=== PATIENT | female | born 1950 | race Caucasian/White ===

== ENCOUNTER → 2017-04-03 | Outpatient (CLI) | payer OTHER ==
[~2017-04-03] MED LIST: BIOTPOW17 PO; DOCU100C PO; INSPMPNVLG; LOSA50TA6 PO; MELA1TAB3 PO; ONDA8TAB6 PO; ROPI0.25 PO; ROPI0.5T15 PO; TRAM-10 PO; VENL150C56 PO
--- NOTE | 2017-04-03 09:38 | DIAGNOSTIC IMAGING REPORT ---
MRI OF THE LUMBAR SPINE WITHOUT CONTRAST CLINICAL HISTORY: Spondylosis. Low back pain radiating into right lower extremity. COMPARISON STUDY: No previous studies for comparison. TECHNIQUE: Utilizing a 1.5 Pat magnet and dedicated coil, multiplanar, multiecho imaging of the lumbar spine was performed without IV contrast. FINDINGS: For purposes of numbering on this exam, the L5-S1 disc space is assigned to axial image 27 of 30. Alignment of the lumbar spine is anatomic. There is a Schmorl's node along the superior endplate of T12. Slight loss of height of the superior endplate of T11 with Schmorl's node is chronic. There is no intracanalicular mass or fluid collection. Conus terminates at the mid L1 level. Paravertebral soft tissues are unremarkable. This study is mildly compromised by motion artifact. L1-2: The central canal and neural foramen are patent. L2-3: The central canal and neural foramen are patent. There is mild disc bulge with facet arthrosis. L3-4: There is mild disc bulge with ligamentous hypertrophy and facet arthrosis. The central canal and neural foramen are patent. L4-5: There is disc bulge with a small superimposed left foraminal disc protrusion. There is facet arthrosis. Central canal is patent. There is mild narrowing of the left neural foramen and left lateral recess. L5-S1: There is a small central disc protrusion with annular tear. There is minimal narrowing of the central canal. The neural foramen are patent. IMPRESSION: 1. Mild multilevel degenerative disc disease and facet arthrosis. Minimal narrowing of the central canal at L5-S1. 2. Mild multilevel neural foraminal narrowing. Electronically signed by: Cristopher Quiñonez M.D. 04/03/2017 9:37 AM Dictated Date/Time: 04/03/2017 9:29 AM
== END | disposition home or self-care (01) ==
LOC: C.MRI 07:39
PROVIDERS: ATTEND Orthopaedic Surgery Orthopaedic Surgery of the Spine
DX: M47.26 Other spondylosis with radiculopathy, lumbar region (principal)

== ENCOUNTER → 2017-05-20 | Outpatient (CLI) | payer OTHER ==
--- NOTE | 2017-05-20 13:15 | DIAGNOSTIC IMAGING REPORT ---
PELVIS AND RIGHT HIP MRI HISTORY: Right hip pain. TECHNIQUE: Multiplanar multisequence MRI of the pelvis and right hip were performed without the use of contrast. COMPARISON STUDY: Lumbar spine MRI 04/03/2017. FINDINGS: Normal marrow signal intensity seen throughout the visualized osseous structures of the pelvis and hips. No fracture or dislocation. No significant hip effusion. Small linear cystic focus adjacent to the superior aspect of the right hip. This favors a small paralabral cyst in the setting of a labral tear. This measures approximately 2.2 x 0.4 cm. IMPRESSION: 1. No fracture or dislocation within the pelvis or hips. 2. Small linear cystic focus adjacent to the superior aspect of the right hip. This favors a small paralabral cyst in the setting of a labral tear. This measures approximately 2.2 x 0.4 cm. Electronically signed by: Jayme Owens M.D. 05/20/2017 1:13 PM Dictated Date/Time: 05/20/2017 1:08 PM
== END | disposition home or self-care (01) ==
LOC: C.MRI 11:38
PROVIDERS: ATTEND Orthopaedic Surgery Orthopaedic Surgery of the Spine
DX: M25.551 Pain in right hip (principal)

== ENCOUNTER 2022-08-03 06:08 | Inpatient (IN) ==
--- NOTE | 2022-07-16 11:25 | PAT Medication Instructions ---
Medication Instructions Date of Service July 16, 2022 Home Medications Medication Instructions Recorded insulin syr/ndl U100 half bette 0.3 #100 ea 03/21/21 mL 31 gauge x 5/16" (BD Insulin Syringe Ultra-Fine (half unit)) Tresiba FlexTouch U-100 100 20 unit (0.2 mL) subcut DAILY #15 03/23/21 unit/mL (3 mL) subcutaneous pen mL (insulin degludec) ipratropium bromide 21 mcg (0.03 2 spray intranasal BID #30 mL 09/22/21 %) nasal spray tamsulosin 0.4 mg capsule 0.4 mg PO DAILY #30 caps 03/21/22 pregabalin 75 mg capsule (Lyrica) 75 mg PO HS omeprazole 20 mg capsule,delayed release 20 mg PO BID ondansetron HCl 8 mg tablet (Zofran) 8 mg PO Q8H PRN tramadol 50 mg tablet (Ultram) 50 mg PO Q6H PRN venlafaxine 150 mg capsule,extended release 24 hr (Effexor XR) 150 mg PO QAM blood-glucose sensor (Dexcom G6 Sensor device) blood-glucose transmitter (Dexcom G6 Transmitter device) insulin aspart U-100 100 unit/mL subcutaneous solution (Novolog U-100 Insulin aspart) 50 unit subcut DAILY metoprolol succinate 25 mg tablet,extended release 24 hr 25 mg PO QPM insulin syr/ndl U100 half bette 0.3 mL 31 gauge x 5/16" (BD Insulin Syringe Ultra-Fine (half unit)) Tresiba FlexTouch U-100 100 unit/mL (3 mL) subcutaneous pen (insulin degludec) 20 unit (0.2 mL) subcut DAILY ipratropium bromide 21 mcg (0.03 %) nasal spray 2 spray intranasal BID tamsulosin 0.4 mg capsule 0.4 mg PO DAILY oxycodone 5 mg tablet 5 mg PO Q6H PRN Continue as directed ondansetron HCl 8 mg tablet (Zofran) 8 mg PO Q8H PRN(if needed) tamsulosin 0.4 mg capsule 0.4 mg PO DAILY DO NOT take the morning of surgery insulin aspart U-100 100 unit/mL subcutaneous solution (Novolog U-100 Insulin aspart) 50 unit subcut DAILY Take morning of surgery With a small sip of water, OTHERWISE NOTHING TO EAT OR DRINK AFTER MIDNIGHT: omeprazole 20 mg capsule,delayed release 20 mg PO BID tramadol 50 mg tablet (Ultram) 50 mg PO Q6H PRN(if needed) venlafaxine 150 mg capsule,extended release 24 hr (Effexor XR) 150 mg PO QAM ipratropium bromide 21 mcg (0.03 %) nasal spray 2 spray intranasal BID oxycodone 5 mg tablet 5 mg PO Q6H PRN(if needed) Take evening before surgery pregabalin 75 mg capsule (Lyrica) 75 mg PO HS omeprazole 20 mg capsule,delayed release 20 mg PO BID tramadol 50 mg tablet (Ultram) 50 mg PO Q6H PRN(if needed) metoprolol succinate 25 mg tablet,extended release 24 hr 25 mg PO QPM ipratropium bromide 21 mcg (0.03 %) nasal spray 2 spray intranasal BID oxycodone 5 mg tablet 5 mg PO Q6H PRN(if needed) Insulin Dependent Diabetic Patients * Test your blood sugar the morning of surgery * If Blood Sugar is GREATER THAN 150, take HALF of your regular dose of: Tresiba FlexTouch U-100 100 unit/mL (3 mL) subcutaneous pen (insulin degludec)-10 unit (0.2 mL) subcut DAILY * If Blood Sugar is LESS THAN 150, DO NOT TAKE ANY: Tresiba FlexTouch U-100 100 unit/mL (3 mL) subcutaneous pen (insulin degludec). Other Notes If you have any questions please call us at [phone] or [phone] or [phone] or [phone]
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
[~2022-08-03 06:08] MED LIST changes: +ACETAMINOPHEN 500 MG TAB PO SCH; -BIOTPOW17 PO; +CeleBREX 200 MG CAP PO SCH; -DOCU100C PO; +GABAPENTIN 300 MG CAP PO SCH; -INSPMPNVLG; +LACTATED RINGER'S 1,000 ML IV SCH; -LOSA50TA6 PO; -MELA1TAB3 PO; -ONDA8TAB6 PO; -ROPI0.25 PO; -ROPI0.5T15 PO; -TRAM-10 PO; -VENL150C56 PO; +ceFAZolin 1000MG 1,000 MG/7.5 ML SYR IV SCH
[2022-08-03] MEDS ORDERED: ceFAZolin 330 MG/ML 1 GM VIAL ONE (07:20)
[2022-08-03] MEDS ORDERED: BUPIVACAINE/EPINEPHRINE 0.25% 1:200,000 30 ML VIAL ONE (07:20)
--- NOTE | 2022-08-03 07:34 | History & Physical Bridge Note ---
Date of Service August 03, 2022 History & Physical Bridge Note I have examined the patient, reviewed the History & Physical and in the interval since the performance of the History & Physical I have noted the following changes of clinical significance: no changes noted
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
[2022-08-03] MEDS ORDERED: ROCURONIUM BROMIDE 10 MG/ML 5 ML VIAL IV ONE (07:36)
[2022-08-03] MEDS ORDERED: LIDOCAINE 2% MPF LOCAL 5 ML VIAL INFIL ONE (07:36)
[2022-08-03] MEDS ORDERED: ONDANSETRON INJ 2 MG/ML 2 ML VIAL ONE (07:36)
[2022-08-03] MEDS ORDERED: PROPOFOL IV EMULSION 10 MG/ML 20 ML VIAL IV ONE (07:36)
[2022-08-03] MEDS ORDERED: METOCLOPRAMIDE HCL INJ 5 MG/ML 2 ML VIAL ONE (07:36)
[2022-08-03] MEDS ORDERED: fentaNYL citrate 100 MCG/2 ML VIAL ONE ×2 (07:37→09:23)
[2022-08-03] MEDS ORDERED: PHENYLEPHRINE 100MCG/ML 5ML SYR IV PRN (07:38)
[2022-08-03] MEDS ORDERED: ONDANSETRON INJ 2 MG/ML 2 ML VIAL IV PRN ×2 (07:38→12:30)
[2022-08-03] MEDS ORDERED: ePHEDrine sulfate 50 MG/ML AMP IV PRN (07:38)
[2022-08-03] MEDS ORDERED: LABETALOL HCL IV 5 MG/ML 20ML IV PRN (07:38)
[2022-08-03] MEDS ORDERED: ATROPINE SULFATE 0.1 MG/ML 10ML SYR IV PRN (07:38)
[2022-08-03] MEDS ORDERED: ALBUMIN HUMAN 5% 12.5 GM/250 ML VIAL IV ONE (07:39)
[2022-08-03] MEDS ORDERED: KETAMINE 50 MG/5 ML SYRINGE ONE (08:16)
[2022-08-03] MEDS ORDERED: ePHEDrine sulfate 50 MG/ML AMP ONE (08:36)
[2022-08-03] MEDS ORDERED: NEOSTIGMINE METHYLSULFATE 1 MG/ML 10ML VIAL ONE (08:36)
[2022-08-03] MEDS ORDERED: GLYCOPYRROLATE 0.2 MG/ML VIAL ONE (08:36)
[2022-08-03] MEDS ORDERED: FLOSEAL HEMOSTATIC MATRIX 10ML TOP ONE (09:14)
[2022-08-03] MEDS ORDERED: SUGAMMADEX SODIUM 200 MG/2 ML VIAL IV ONE (09:21)
--- NOTE | 2022-08-03 09:26 | Operative Report ---
Post Operative Report Pre & Post Diagnosis Operation Date: 08/03/22 07:45 Pre-Op Diagnosis: Neurogenic Claudication due to Lumbar Spinal Stenosis Post-Op Diagnosis: Neurogenic Claudication due to Lumbar Spinal Stenosis I identified the patient and participated in the time-out.: Yes Procedure Operation Date: 08/03/22 07:45 Actual Procedures #1 lumbar decompression bilateral medial facetectomies and foraminotomies L3-L4 L4-5. #2 posterior spinal fusion L4-5. #3 placement posterior instrumentation L4-5. #4 interbody fusion L4-5. #5 placement of Spira 13 x 26 mm cage at L4-5. #6 placement locally harvested morselized autograft and posterior gutters. #7 placement I factor model V toss interbody space and posterior gutters. Surgeon Rip Pena, Drug Counselor Diego Cisneros Estimated Blood Loss 100 Findings Consistent with Post-Op Diagnosis Specimens None Indications This is a 72-year-old female who presents above-mentioned diagnosis after failing course of nonoperative care she is here for surgical invention. Description of Procedure Patient was met with identified informed consent obtained. Patient was then taken to the operative suite underwent a patient placed in prone position the [place] table top Jan frame. All bony prominences well-padded eyes inspected to ensure no external pressure placed upon the. This point lumbar spine was prepped and draped in a sterile fashion. Sharp dissection with the assistance of Bovie cartilage from down to and exposing the lamina transverse processes of L4-L5. From caudal to cephalad fashion complete laminectomy of L4 partial laminectomy of L3 was performed including bilateral medial facetectomies and fo raminotomies addressing severe spinal stenosis. Pedicle screws were then placed at L4 and L5 bilaterally with assistance of fluoroscopy and the proper sized alden placed. By way of transforaminal portion left pleat discectomy of L for L5 was performed endplates curetted to subcortical bleeding bone and a 13 x 26 mm spiral cage filled with I factor tapped in position. The rods then compressed locked into final position bilaterally. The transverse processes of L4-L5 burred to subcortically bone. I factor model detox and locally harvested morselized autograft was placed in the posterior gutters. 15 round IVONNE inserted. Incision was then closed with 1 Vicryl the fascia 2-0 Vicryl subcutaneously and 4 Monocryl for final skin closure. Steri-Strip sterile dressings placed. Patient waken taken PACU stable condition. Please note spinal cord monitoring visualized at the procedure no changes noted. Lastly Diego Cisneros was present at the entire surgery and while the patient positioning complex portion of the surgery and fascial closure. Please note after review of imaging and intraoperative fluoroscopy I chose not to address L5-S1 levels that appear to be relatively stable and wanted to avoid additional stresses to the spine. I attest to the content of the Intraoperative Record and any orders documented therein. Any exceptions are noted below.
--- NOTE | 2022-08-03 09:48 | Fluoroscopy Report ---
FL lumbar spine 2-3V CLINICAL HISTORY: L4-S1 DFI COMPARISON STUDY: Lumbar spine MRI July 27, 2022. FLUOROSCOPY TIME: 20 seconds. FLUOROSCOPIC IMAGES: 2 FINDINGS: Fluoroscopy was provided during L4-L5 discectomy, posterior decompression and bilateral ped icle screw fusion. The hardware is intact. There are no unexpected radiopaque foreign bodies. IMPRESSION: Fluoroscopy provided during L4-L5 discectomy, posterior decompression and bilateral pedi lily screw fusion. ACT 112: Negative or not required by law. Electronically signed by: Cristopher Quiñonez M.D. 08/03/2022 9:47 AM
[2022-08-03] MEDS: fentaNYL citrate 100 MCG/2 ML VIAL IV PRN ×4 (09:55→10:15)
[2022-08-03] MEDS: MEPERIDINE HCL 25 MG/ML CARP/VIAL IV PRN ×2 (10:45→11:00)
[2022-08-03] MEDS ORDERED: INSULIN HUMAN REGULAR PER UNIT 6 UNITS in SYRINGE 0 ML IV STA ×2 (10:53→11:30)
[2022-08-03] MEDS ORDERED: NovoLIN-R INSULIN PER UNIT CHARGE ONE (10:55)
[2022-08-03] MEDS ORDERED: NovoLIN-R INSULIN PER UNIT CHARGE IV ONE (11:00)
[2022-08-03] MEDS ORDERED: PHARMACY GLYCEMIC MGMT CONSULT PRN ×2 (11:30→12:30)
[2022-08-03] MEDS ORDERED: METOPROLOL TARTRATE 1 MG/ML VIAL IV ONE (11:49)
[2022-08-03] MEDS ORDERED: METOPROLOL TARTRATE 1 MG/ML VIAL IV STA (11:50)
--- NOTE | 2022-08-03 12:02 | Anesthesiology Progress Note ---
Date of Service August 03, 2022 Anesthesia Post Procedure Vital Signs Vital Signs: Temp Pulse Pulse Pulse Resp BP BP 08/03/22 11:55 99 H 14 120/60 08/03/22 11:50 107 H 111/52 L 08/03/22 11:45 106 H 14 111/52 L 08/03/22 11:35 109 H 14 108/47 L 08/03/22 11:25 100 H 12 103/46 L 08/03/22 11:15 100 H 15 96/64 L 08/03/22 11:05 104 H 18 109/49 L 08/03/22 10:55 101 H 19 113/56 L 08/03/22 10:45 101 H 19 109/66 08/03/22 10:35 96 H 17 110/76 08/03/22 10:25 101 H 21 111/71 08/03/22 10:15 100 H 18 138/91 08/03/22 10:05 104 H 12 174/85 H 08/03/22 09:55 107 H 13 183/79 H 08/03/22 09:45 36.4 C L 109 H 17 185/77 H 08/03/22 06:43 36.5 C 76 20 168/96 H Pulse Ox O2 Del Method O2 Flow Rate 08/03/22 11:55 99 Nasal Cannula 2 08/03/22 11:50 08/03/22 11:45 98 Nasal Cannula 2 08/03/22 11:35 97 Nasal Cannula 2 08/03/22 11:25 97 Nasal Cannula 2 08/03/22 11:15 98 Nasal Cannula 2 08/03/22 11:05 98 Nasal Cannula 2 08/03/22 10:55 98 Nasal Cannula 2 08/03/22 10:45 96 Room Air 08/03/22 10:35 95 Room Air 08/03/22 10:25 95 Room Air 08/03/22 10:15 99 Nasal Cannula 2 08/03/22 10:05 100 Nasal Cannula 2 08/03/22 09:55 100 Nasal Cannula 4 08/03/22 09:45 100 Nasal Cannula 4 08/03/22 06:43 100 Room Air Pain Intensity Left Hip: Pain Intensity: 1 Back: Pain Intensity: 3 Right Leg: Pain Intensity: 2 Transfer of Care Handoff Completed per policy Notes Mental Status: alert / awake / arousable Patient Amnestic to Procedure: Yes Nausea / Vomiting: adequately controlled Pain: adequately controlled Airway Patency, RR, SpO2: stable & adequate BP & HR: stable & adequate Hydration State: stable & adequate Anesthetic Complications: no major complications apparent and Pt Satisfied with anesthetic care Notes: The patient is on an insulin pump. The patient is now on her normal rate of insulin through the pump. She was given two boluses of 6 units regular insulin IV in PACU. Her BSG in PACU was in the 300s and is now in the 200s. Pharmacy glycemic management will take over management of her glucose levels on the floor.
[2022-08-03] MEDS ORDERED: MAGNESIUM HYDROXIDE SUSP 30 ML UDC PO PRN (12:30)
[2022-08-03] MEDS ORDERED: ALUMINUM/MAGNESIUM SUSP 30 ML UDC PO PRN (12:30)
[2022-08-03] MEDS ORDERED: ONDANSETRON 4 MG OD TAB PO PRN (12:30)
[2022-08-03] MEDS ORDERED: hydrOXYzine HCl 25 MG TAB PO PRN (12:30)
[2022-08-03] MEDS ORDERED: FAMOTIDINE 20 MG TAB PO PRN (12:30)
[2022-08-03] MEDS ORDERED: diphenhydrAMINE Capsule 25 MG CAP PO PRN (12:30)
[2022-08-03] MEDS ORDERED: PROMETHAZINE HCL 12.5 MG in SODIUM CHLORIDE 0.9% 50 ML IV PRN (12:30)
[2022-08-03] MEDS ORDERED: SOD PHOSPHATE/SOD BIPHOSPHATE ENEMA 132 ML BTL PR PRN (12:30)
[2022-08-03] MEDS ORDERED: bisacodyL 10 MG SUPP PR PRN (12:30)
[2022-08-03] MEDS ORDERED: ACETAMINOPHEN 1,000 MG/100 ML VIAL IV PRN (12:30)
[2022-08-03] MEDS ORDERED: HYDROmorphone INJ 1 MG/ML SYRINGE IV PRN (12:30)
[2022-08-03] MEDS ORDERED: HYDROmorphone INJ 0.5 MG/0.5 ML SYR IV PRN (12:30)
[2022-08-03] MEDS ORDERED: NALOXONE HCL 0.4 MG/1 ML VIAL/CARP IV PRN (12:30)
[2022-08-03] MEDS ORDERED: METOCLOPRAMIDE HCL INJ 5 MG/ML 2 ML VIAL IV PRN (12:30)
[2022-08-03] MEDS ORDERED: LORazepam 0.5 MG in SYRINGE 0 ML IV PRN (12:30)
[2022-08-03] MEDS ORDERED: DEXTROSE 50% 50 ML SYRINGE IV PRN (13:30)
[2022-08-03] MEDS ORDERED: INSULIN ASPART 100 UNITS/ML VIAL SC PRN (13:30)
[2022-08-03] MEDS ORDERED: GLUCOSE 10 TAB/TUBE PO PRN (13:30)
[2022-08-03] MEDS ORDERED: GLUCOSE 40% GEL 15 GM TUBE PO PRN (13:30)
[2022-08-03] MEDS ORDERED: GLUCAGON FOR INJ 1 MG VIAL SQ PRN (13:30)
[2022-08-03] MEDS: SODIUM CHLORIDE 0.9% 1000ML 1,000 ML IV SCH ×2 (13:50→23:30)
--- NOTE | 2022-08-03 14:14 | Pharmacy Report ---
Pharmacy Glycemic Short Note 2 - Date of Service August 03, 2022 - Glycemic Short BSG Results (Last 24 hours): 08/03/22 08/03/22 08/03/22 06:39 09:48 10:30 POC Glucose 229 H 290 H 269 H 08/03/22 08/03/22 08/03/22 11:22 11:53 12:47 POC Glucose 298 H 265 H 135 H 08/03/22 13:20 POC Glucose 101 H OUTPATIENT ANTIDIABETIC REGIMEN: * Novolog pump * SF 80 * CR 11 * Basal rates- * 00-04: 0.35 units/hr * 04-07 0.5 units/hr * 07-00 0.650 units/hr ASSESSMENT: * Ms Tao is a 72 y/o F with a PMH of Type 1 DM on insulin pump. * Patient's preop BSGs were 229-290 mg/dL and immediately post-op was 298 mg/dL. Patient's insulin pump was at a temp basal rate of 50% prior to surgery and increased to 75% when she arrived at the hospital. * Patient received 12 units IV insulin after surgery. * No steroids given during surgery. * Reviewed insulin pump with patient and she would prefer to stay on pump for now. After surgery BSGs trended down significantly to 135-101 mg/dL. * manager social responsibility to see patient. PLAN FOR INPATIENT GLYCEMIC CONTROL: Pt is to manage BSGs with insulin pump per outpatient settings. * RN will have patient read and sign agreement [id number] Insulin Pump Therapy Patient Agreement. * RN will provide and explain form [id number] Flowsheet for Patient * Patient will document their insulin dose given on NS-824 which is kept at the bedside, available to caregivers upon request, and which becomes part of the permanent medical record. If at any time the patients condition evidences that he/she is not able to manage the insulin pump (i.e. frequent hypo/hyperglycemia) Pharmacy will assume glycemic control by discontinuing the pump & managing with SQ basal bolus insulin regimen for the interim.
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
[2022-08-03] MEDS ORDERED: LANTUS PER UNIT CHARGE SQ ONE (15:30)
[2022-08-03] MEDS: ceFAZolin 1000MG 1,000 MG/7.5 ML SYR IV SCH ×2 (16:03→23:36)
[2022-08-03] MEDS: oxyCODONE HCL IR 5 MG TAB (IMMEDIATE RELEASE) PO PRN ×2 (17:20→22:14)
[2022-08-03] MEDS: INSULIN ASPART PER UNIT SC SCH ×3 (18:12→23:45)
[2022-08-03] MEDS: traMADol HCL 50 MG TABLET PO PRN (19:44)
[2022-08-03] MEDS: CARBOHYDRATES FOR HYPOGLYCEMIA PO PRN ×2 (20:05→20:22)
[2022-08-03] MEDS: PREGABALIN 75 MG CAP PO SCH (20:26)
[2022-08-03] MEDS: PANTOprazole 40 MG TAB PO SCH (20:27)
[2022-08-03] MEDS: METOPROLOL SUCC 25MG EXT REL TAB PO SCH (20:27)
[2022-08-03] MEDS: DOCUSATE SODIUM/SENNA 50/8.6MG TAB PO SCH (20:28)
[2022-08-03] MEDS: LORazepam 0.5 MG TAB PO PRN (20:33)
[2022-08-04] MEDS: INSULIN ASPART PER UNIT SC SCH ×5 (03:55→21:31)
[2022-08-04] MEDS: oxyCODONE HCL IR 5 MG TAB (IMMEDIATE RELEASE) PO PRN ×2 (03:55→13:36)
[2022-08-04] MEDS: POLYETHYLENE (MIRALAX) 17 GM PACK PO SCH ×3 (05:54→17:12)
[2022-08-04 07:19] LABS: Basophils # (auto) 0.03 K/uL (0-0.2); Basophils % (auto) 0.5 %; Eosinophils # (auto) 0.11 K/uL (0-0.50); Eosinophils % (auto) 1.8 %; Hematocrit (blood only) 29.1 % (34.1-44.9); Hemoglobin 9.3 g/dl (12.0-16.0); Immature Granulocytes # (auto) 0.02 K/uL (0.00-0.02); Immature Granulocytes % (auto) 0.3 %; Lymphocytes # (auto) 1.15 K/uL (1.2-3.4); Lymphocytes % (auto) 18.3 %; Mean Corpuscular Hemoglobin 26.5 pg (25.0-34.0); Mean Corpuscular Volume 82.9 fL (80.0-100.0); Mean Platelet Volume 12.6 fL (9.4-12.3); Monocytes # (auto) 0.62 K/uL (0.24-0.82); Monocytes % (auto) 9.9 %; Neutrophils # (auto) 4.35 K/uL (1.4-6.5); Neutrophils % (auto) 69.2 %; Platelet Count 150 K/uL (130-400); RDW Coefficient of Variation 15.1 % (11.5-14.5); RDW Standard Deviation 45.4 fL (36.4-46.3); Red Blood Count 3.51 M/uL (3.93-5.22); White Blood Count 6.28 K/ul (4.8-10.8)
[2022-08-04 07:55] LABS: Estimated Average Glucose 180 mg/dl; Hemoglobin A1C 7.9 % (4.5-5.6)
[2022-08-04 08:07] LABS: BUN Creatinine Ratio 14.3 (10-20); Calcium 8.3 mg/dl (8.5-10.1); Creatinine Clr Calc Pharmacy 71.6 ml/min; Est GFR (African American) 103.1 ml/min; Potassium 4.1 mmol/L (3.5-5.1)
--- NOTE | 2022-08-04 08:09 | Orthopedic Progress Note ---
Date of Service August 04, 2022 Assessment & Plan (1) Neurogenic claudication due to lumbar spinal stenosis: Plan: This time we will continue physical therapy monitor IVONNE operatively discharge home next few days. Admission and Anticipated Discharge Date Admission Date: August 03, 2022 Subjective Back pain controlled leg pain markedly improved Physical Exam Physical Exam: Patient is comfortable in bed. EXTR strength testing. Results & Data ([facility]) Vital Signs (Past 12 Hours) Vital Signs Temp Pulse Pulse Resp BP Pulse Ox O2 Del Method 08/04/22 08:05 37.4 C 86 16 153/69 H 92 Room Air 08/04/22 02:59 37.2 C 90 16 128/64 94 08/03/22 20:20 36.6 C 80 178/72 H 97 Room Air
[2022-08-04] MEDS: VENLAFAXINE HCL XR 150 MG CAPXR PO SCH (10:36)
[2022-08-04] MEDS: PANTOprazole 40 MG TAB PO SCH ×2 (10:36→21:27)
[2022-08-04] MEDS: ACETAMINOPHEN 500 MG TAB PO PRN ×2 (13:37→21:25)
[2022-08-04] MEDS: LORazepam 0.5 MG TAB PO PRN ×2 (14:31→23:18)
[2022-08-04] MEDS ORDERED: LANTUS PER UNIT CHARGE SQ ONE ×2 (16:30→18:35)
--- NOTE | 2022-08-04 16:55 | Hospitalist Progress Note ---
Date of Service August 04, 2022 Assessment & Plan (1) Neurogenic claudication due to lumbar spinal stenosis: Plan: POD#1 L4-S1 decompression and fusion by Dr. Pena Activity and wound care orders as per ortho Pain control with bowel regimen PT/OT Hemoglobin dropped from 11.8-9.3 and will monitor Remains hemodynamically stable Will monitor CBC and electrolytes (2) Diabetes mellitus type 1: Plan: Blood sugar is running high around 200 Has been under glycemic control pharmacist (3) Insulin pump status: Plan: Hgb A1c 8.3 05/2022 Discussed with glycemic pharmacist, will have patient discontinue insulin pump and start SQ basal/bolus regimen (4) History of atrial tachycardia: Plan: Heart rate remains around 92 (5) Second degree AV block: (6) Pacemaker: Plan: No acute issues Continue metoprolol (7) DVT prophylaxis: Plan: TEDS/SCDs as per spine ortho Thank you for this consultation. We will follow the patient with you during their hospital stay. You can reach a member of the [facility] Hospitalist Team 13/05 via the [facility] Hospitalist role in [place]. Admission and Anticipated Discharge Date Admission Date: August 03, 2022 Subjective 08/04/2022 The patient was seen and examined in medical floor She is status post L4-L5 decompression and fusion Has been complaining of back pain which seems to be under control now Denies any other symptoms Review of Systems Review of Systems: All systems reviewed and are unremarkable except as noted below Musculoskeletal: Ongoing back pain status post lumbar decompression and fusion as above Physical Exam Physical Exam: Lying in bed comfortably Constitutional: average body habitus; not ill appearing Eyes: PERRL, conjunctivae normal, anicteric sclerae ENMT: external ear and nose normal, oropharynx normal Neck: trachea midline, no thyromegaly Respiratory: no respiratory distress Auscultation: lungs clear to auscultation bilaterally Cardiovascular: Rate/Rhythm: regular rate and regular rhythm; not tachycardic Heart Sounds: normal S1, normal S2 and + murmur Extremities: + edema (Trace edema bilaterally) Gastrointestinal (Abdomen): Inspection/Auscultation: normal bowel sounds; abdomen not distended Percussion/Palpation: abdomen soft; abdomen nontender Musculoskeletal: No acute arthritis in any joint Neurologic: Alert, awake and oriented x3 Results & Data Results & Data ([facility]) Vital Signs (Past 12 Hours) Vital Signs Temp Pulse Resp BP Pulse Ox O2 Del Method 08/04/22 15:28 37 C 92 H 16 137/54 L 98 Room Air 08/04/22 08:05 37.4 C 86 16 153/69 H 92 Room Air Laboratory Results Short CBC 08/04/22 Range/Units 06:24 WBC 6.28 (4.8-10.8) K/ul Hgb 9.3 L (12.0-16.0) g/dl Hct 29.1 L (34.1-44.9) % Plt Count 150 (130-400) K/uL BMP 08/04/22 06:24 Sodium 137 Potassium 4.1 Chloride 106 Carbon Dioxide 27 BUN 9 Creatinine 0.63 Glucose 151 H Calcium 8.3 L Medications Administered Current Inpatient Medications Acetaminophen (Acetaminophen 500 Mg Tab) 1,000 mg PO Q8H PRN PRN Reason: MILD Pain Scale 1,2,3 & Pre PT Stop: 09/02/22 12:29 Last Admin: 08/04/22 13:37 Dose: 1,000 mg Al Hydrox/Mg Hydrox/Simethicone (Aluminum/Magnesium Susp 30 Ml Udc) 30 ml PO Q6H PRN PRN Reason: Dyspepsia Stop: 09/02/22 12:29 Bisacodyl (Bisacodyl 10 Mg Supp) 10 mg PA DAILY PRN PRN Reason: Constipation Stop: 09/02/22 12:29 Dextrose (Dextrose 50% 50 Ml Syringe) 25 - 50 ml IV UD PRN; Protocol PRN Reason: Hypoglycemia Protocol Stop: 09/02/22 13:29 Diphenhydramine HCl (Diphenhydramine Capsule 25 Mg Cap) 25 mg PO Q6H PRN PRN Reason: Allergic Rhinitis/Insomnia Stop: 09/02/22 12:29 Famotidine (Famotidine 20 Mg Tab) 20 mg PO Q12H PRN PRN Reason: Dyspepsia Stop: 09/02/22 12:29 Glucagon (Glucagon For Inj 1 Mg Vial) 1 mg SQ UD PRN; Protocol PRN Reason: Hypoglycemia Protocol Stop: 09/02/22 13:29 Glucose (Glucose 40% Gel 15 Gm Tube) 15 - 30 gm PO UD PRN; Protocol PRN Reason: Hypoglycemia Protocol Stop: 09/02/22 13:29 Glucose (Glucose 10 Tab/Tube) 4 - 8 tab PO UD PRN; Protocol PRN Reason: Hypoglycemia Protocol Stop: 09/02/22 13:29 Hydromorphone HCl (Hydromorphone Inj 0.5 Mg/0.5 Ml Syr) 0.5 mg IV Q3H PRN PRN Reason: MODERATE Pain (Scale 4,5,6) & Pre PT Stop: 08/17/22 12:29 Hydromorphone HCl (Hydromorphone Inj 1 Mg/Ml Syringe) 1 mg IV Q3H PRN PRN Reason: SEVERE Pain (Scale 7,8,9,10) Stop: 08/17/22 12:29 Last Admin: 08/04/22 08:07 Dose: 1 mg Hydroxyzine HCl (Hydroxyzine Hcl 25 Mg Tab) 25 mg PO Q8H PRN PRN Reason: Anxiety Stop: 09/02/22 12:29 Promethazine HCl 12.5 mg/ (Sodium Chloride) 50.5 mls @ 202 mls/hr IV Q6H PRN PRN Reason: Nausea &/or Vomiting Stop: 09/02/22 12:29 Lorazepam 0.5 mg/ Syringe 0.5 mls @ 2 mls/min IV Q8H PRN PRN Reason: Sedation/Anxiety Stop: 09/02/22 12:29 Insulin Aspart (Insulin Aspart Per Unit) 0 units SC ACHS [facility] Stop: 09/02/22 16:29 Last Admin: 08/04/22 13:26 Dose: 2 units Lorazepam (Lorazepam 0.5 Mg Tab) 0.5 mg PO Q8H PRN PRN Reason: Sedation/Anxiety Stop: 09/02/22 12:29 Last Admin: 08/04/22 14:31 Dose: 0.5 mg Magnesium Hydroxide (Magnesium Hydroxide Susp 30 Ml Udc) 30 ml PO Q24H PRN PRN Reason: Constipation Stop: 09/02/22 12:29 Metoclopramide HCl (Metoclopramide Hcl Inj 5 Mg/Ml 2 Ml Vial) 10 mg IV Q6H PRN PRN Reason: Nausea &/or Vomiting Stop: 09/02/22 12:29 Metoprolol Succinate (Metoprolol Succ 25mg Ext Rel Tab) 25 mg PO QPM [facility] Stop: 09/02/22 20:59 Last Admin: 08/03/22 20:27 Dose: 25 mg Miscellaneous (Ipratropium 0.03%-Order Awaiting Action) 1 each N/A QS SHARMILA Stop: 09/02/22 15:59 Last Admin: 08/04/22 16:13 Dose: Not Given Miscellaneous (Carbohydrates For Hypoglycemia ) 15 - 30 gm PO UD PRN PRN Reason: Hypoglycemia Treatment Stop: 09/02/22 13:29 Last Admin: 08/03/22 20:22 Dose: 15 gm Miscellaneous Information (Pharmacy Glycemic Mgmt Consult) 1 each N/A UD PRN PRN Reason: Consult Stop: 09/02/22 12:29 Naloxone HCl (Naloxone Hcl 0.4 Mg/1 Ml Vial/Carp) 0.1 mg IV Q5M PRN PRN Reason: Oversedation/Resp depression Stop: 09/02/22 12:29 Ondansetron HCl (Ondansetron Inj 2 Mg/Ml 2 Ml Vial) 4 mg IV Q6H PRN PRN Reason: Nausea &/or Vomiting Stop: 09/02/22 12:29 Ondansetron HCl (Ondansetron 4 Mg Od Tab) 4 mg PO Q6H PRN PRN Reason: Nausea Stop: 09/02/22 12:29 Oxycodone HCl (Oxycodone Hcl Ir 5 Mg Tab (Immediate Release)) 5 - 10 mg PO Q4H PRN PRN Reason: Pain & Pre PT Stop: 08/17/22 12:29 Last Admin: 08/04/22 13:36 Dose: 10 mg Pantoprazole Sodium (Pantoprazole 40 Mg Tab) 40 mg PO BID SHARMILA Stop: 09/02/22 20:59 Last Admin: 08/04/22 10:36 Dose: 40 mg Polyethylene Glycol (Polyethylene (Miralax) 17 Gm Pack) 17 gm PO Q6 SHARMILA Stop: 09/03/22 05:59 Last Admin: 08/04/22 13:27 Dose: 17 gm Pregabalin (Pregabalin 75 Mg Cap) 75 mg PO HS SHARMILA Stop: 09/02/22 20:59 Last Admin: 08/03/22 20:26 Dose: 75 mg Senna/Docusate Sodium (Docusate Sodium/Senna 50/8.6mg Tab) 2 tab PO HS SHARMILA Stop: 09/02/22 20:59 Last Admin: 08/03/22 20:28 Dose: 2 tab Sodium Biphosphate/Sodium Phosphate (Sod Phosphate/Sod Biphosphate Enema 132 Ml Btl) 132 ml PA ONE PRN PRN Reason: Constipation Stop: 09/02/22 12:29 Tramadol HCl (Tramadol Hcl 50 Mg Tablet) 50 - 100 mg PO Q4H PRN PRN Reason: Moderate-Severe pain & Pre PT Stop: 09/02/22 12:29 Last Admin: 08/03/22 19:44 Dose: 100 mg Venlafaxine HCl (Venlafaxine Hcl Xr 150 Mg Capxr) [facility] Stop: 09/03/22 08:59 Last Admin: 08/04/22 10:36 Dose: 150 mg
[2022-08-04] MEDS: traMADol HCL 50 MG TABLET PO PRN (21:26)
[2022-08-04] MEDS: PREGABALIN 75 MG CAP PO SCH (21:27)
[2022-08-04] MEDS: METOPROLOL SUCC 25MG EXT REL TAB PO SCH (21:27)
[2022-08-04] MEDS: DOCUSATE SODIUM/SENNA 50/8.6MG TAB PO SCH (21:27)
[2022-08-05] MEDS: POLYETHYLENE (MIRALAX) 17 GM PACK PO SCH ×5 (00:25→17:52)
[2022-08-05 06:56] LABS: Basophils # (auto) 0.03 K/uL (0-0.2); Basophils % (auto) 0.4 %; Eosinophils # (auto) 0.19 K/uL (0-0.50); Eosinophils % (auto) 2.8 %; Hematocrit (blood only) 29.1 % (34.1-44.9); Hemoglobin 9.4 g/dl (12.0-16.0); Immature Granulocytes # (auto) 0.03 K/uL (0.00-0.02); Immature Granulocytes % (auto) 0.4 %; Lymphocytes # (auto) 1.08 K/uL (1.2-3.4); Mean Corpuscular Hemoglobin 26.6 pg (25.0-34.0); Mean Corpuscular Hgb Conc 32.3 g/dL (32.0-36.0); Mean Corpuscular Volume 82.4 fL (80.0-100.0); Mean Platelet Volume 12.7 fL (9.4-12.3); Monocytes # (auto) 0.76 K/uL (0.24-0.82); Monocytes % (auto) 11.2 %; Neutrophils # (auto) 4.67 K/uL (1.4-6.5); Neutrophils % (auto) 69.2 %; Platelet Count 129 K/uL (130-400); RDW Coefficient of Variation 14.7 % (11.5-14.5); RDW Standard Deviation 44.4 fL (36.4-46.3); Red Blood Count 3.53 M/uL (3.93-5.22); White Blood Count 6.76 K/ul (4.8-10.8)
[2022-08-05 07:27] LABS: BUN Creatinine Ratio 15.1 (10-20); Creatinine Clr Calc Pharmacy 85.1 ml/min; Est GFR (African American) 109.2 ml/min; Est GFR (Non-African American) 94.2 ml/min; Potassium 4.2 mmol/L (3.5-5.1)
[2022-08-05] MEDS: LORazepam 0.5 MG TAB PO PRN ×2 (07:27→20:13)
[2022-08-05] MEDS: oxyCODONE HCL IR 5 MG TAB (IMMEDIATE RELEASE) PO PRN (07:27)
[2022-08-05] MEDS: ACETAMINOPHEN 500 MG TAB PO PRN ×3 (07:27→20:12)
--- NOTE | 2022-08-05 08:09 | Orthopedic Progress Note ---
Date of Service August 05, 2022 Assessment & Plan (1) Neurogenic claudication due to lumbar spinal stenosis: Plan: Patient is postoperative day 2 status post TLIF L4-5. We will continue physical therapy today. Continue with pain control. DVT prophylaxis is in the form teds and SCDs. Maintain IVONNE drain. Anticipate discharge home tomorrow. Admission and Anticipated Discharge Date Admission Date: August 03, 2022 Subjective Mrs. Johnson is postoperative day 1 status post TLIF L4-5. She has an increase in lower back pain today. Lower extremity pain greatly improved. H&H are 9.4 and 29.1 respectively. She is passing flatus but no bowel movement. IVONNE drain output last shift was 90 cc. Yesterday physical therapy ambulating roug hly 250 feet. Review of Systems Review of Systems: All systems reviewed & are unremarkable except as noted in HPI & below Physical Exam Physical Exam: She is lying in bed alert and oriented x3 Lumbar dressing is clean dry intact with functioning IVONNE drain Calf soft nontender bilaterally Strength intact bilateral lower extremities Results & Data ([facility]) Vital Signs (Past 12 Hours) Vital Signs Temp Pulse Resp BP Pulse Ox 08/04/22 21:05 37.0 C 96 H 16 148/61 H 97
[2022-08-05] MEDS: INSULIN ASPART PER UNIT SC SCH ×3 (09:41→19:23)
[2022-08-05] MEDS: VENLAFAXINE HCL XR 150 MG CAPXR PO SCH (10:35)
[2022-08-05] MEDS: PANTOprazole 40 MG TAB PO SCH ×2 (10:35→20:01)
--- NOTE | 2022-08-05 12:53 | Hospitalist Progress Note ---
Date of Service August 05, 2022 Assessment & Plan (1) Neurogenic claudication due to lumbar spinal stenosis: Plan: POD#2 L4-S1 decompression and fusion by Dr. Pena Activity and wound care orders as per ortho Pain control with bowel regimen PT/OT Hemoglobin dropped from 11.8-9.3 and will monitor Remains hemodynamically stable Will monitor CBC and electrolytes-remain unremarkable (2) Diabetes mellitus type 1: Plan: Blood sugar is running high around 200 Has been under glycemic control pharmacist Blood sugar is controlled (3) Insulin pump status: Plan: Hgb A1c 8.3 05/2022 Discussed with glycemic pharmacist, will have patient discontinue insulin pump and start SQ basal/bolus regimen (4) History of atrial tachycardia: Plan: Heart rate remains around 92 Heart rate remains stable at 70s (5) Second degree AV block: (6) Pacemaker: Plan: No acute issues Continue metoprolol (7) DVT prophylaxis: Plan: TEDS/SCDs as per spine ortho Thank you for this consultation. We will follow the patient with you during their hospital stay. Admission and Anticipated Discharge Date Admission Date: August 03, 2022 Subjective 08/04/2022 The patient was seen and examined in medical floor She is status post L4-L5 decompression and fusion Has been complaining of back pain which seems to be under control now Denies any other symptoms 08/05/2022 The patient was seen and examined in medical floor She is out of bed on a chair Minimal pain at the back without radiation Denies any other symptoms Review of Systems Review of Systems: All systems reviewed and are unremarkable except as noted below Musculoskeletal: Ongoing back pain status post lumbar decompression and fusion as above Physical Exam Physical Exam: Lying in bed comfortably Constitutional: average body habitus; not ill appearing Eyes: PERRL, conjunctivae normal, anicteric sclerae ENMT: external ear and nose normal, oropharynx normal Neck: trachea midline, no thyromegaly Respiratory: no respiratory distress Auscultation: lungs clear to auscultation bilaterally Cardiovascular: Rate/Rhythm: regular rate and regular rhythm; not tachycardic Heart Sounds: normal S1, normal S2 and + murmur Extremities: + edema (Trace edema bilaterally) Gastrointestinal (Abdomen): Inspection/Auscultation: normal bowel sounds; abdomen not distended Percussion/Palpation: abdomen soft; abdomen nontender Musculoskeletal: Spine: + pain with thoraco-lumbar ROM Neurologic: normal sensation to monofilament and moves all extremities; no focal motor deficits Psychiatric: A+Ox3, euthymic affect Lymphatic: no cervical or axillary lymphadenopathy Results & Data Results & Data ([facility]) Vital Signs (Past 12 Hours) Vital Signs Temp Pulse Resp BP Pulse Ox O2 Del Method 08/05/22 11:59 36.7 C 73 14 114/60 98 Room Air 08/05/22 08:00 37.2 C 87 16 124/64 95 Room Air Laboratory Results Short CBC 08/05/22 Range/Units 06:22 WBC 6.76 (4.8-10.8) K/ul Hgb 9.4 L (12.0-16.0) g/dl Hct 29.1 L (34.1-44.9) % Plt Count 129 L (130-400) K/uL BMP 08/05/22 06:22 Sodium 138 Potassium 4.2 Chloride 104 Carbon Dioxide 31 BUN 8 Creatinine 0.53 L Glucose 131 H Calcium 9.0 Medications Administered Current Inpatient Medications Acetaminophen (Acetaminophen 500 Mg Tab) 1,000 mg PO Q8H PRN PRN Reason: MILD Pain Scale 1,2,3 & Pre PT Stop: 09/02/22 12:29 Last Admin: 08/05/22 07:27 Dose: 1,000 mg Al Hydrox/Mg Hydrox/Simethicone (Aluminum/Magnesium Susp 30 Ml Udc) 30 ml PO Q6H PRN PRN Reason: Dyspepsia Stop: 09/02/22 12:29 Bisacodyl (Bisacodyl 10 Mg Supp) 10 mg FL DAILY PRN PRN Reason: Constipation Stop: 09/02/22 12:29 Dextrose (Dextrose 50% 50 Ml Syringe) 25 - 50 ml IV UD PRN; Protocol PRN Reason: Hypoglycemia Protocol Stop: 09/02/22 13:29 Diphenhydramine HCl (Diphenhydramine Capsule 25 Mg Cap) 25 mg PO Q6H PRN PRN Reason: Allergic Rhinitis/Insomnia Stop: 09/02/22 12:29 Famotidine (Famotidine 20 Mg Tab) 20 mg PO Q12H PRN PRN Reason: Dyspepsia Stop: 09/02/22 12:29 Glucagon (Glucagon For Inj 1 Mg Vial) 1 mg SQ UD PRN; Protocol PRN Reason: Hypoglycemia Protocol Stop: 09/02/22 13:29 Glucose (Glucose 40% Gel 15 Gm Tube) 15 - 30 gm PO UD PRN; Protocol PRN Reason: Hypoglycemia Protocol Stop: 09/02/22 13:29 Glucose (Glucose 10 Tab/Tube) 4 - 8 tab PO UD PRN; Protocol PRN Reason: Hypoglycemia Protocol Stop: 09/02/22 13:29 Hydromorphone HCl (Hydromorphone Inj 0.5 Mg/0.5 Ml Syr) 0.5 mg IV Q3H PRN PRN Reason: MODERATE Pain (Scale 4,5,6) & Pre PT Stop: 08/17/22 12:29 Hydromorphone HCl (Hydromorphone Inj 1 Mg/Ml Syringe) 1 mg IV Q3H PRN PRN Reason: SEVERE Pain (Scale 7,8,9,10) Stop: 08/17/22 12:29 Last Admin: 08/04/22 08:07 Dose: 1 mg Hydroxyzine HCl (Hydroxyzine Hcl 25 Mg Tab) 25 mg PO Q8H PRN PRN Reason: Anxiety Stop: 09/02/22 12:29 Promethazine HCl 12.5 mg/ (Sodium Chloride) 50.5 mls @ 202 mls/hr IV Q6H PRN PRN Reason: Nausea &/or Vomiting Stop: 09/02/22 12:29 Lorazepam 0.5 mg/ Syringe 0.5 mls @ 2 mls/min IV Q8H PRN PRN Reason: Sedation/Anxiety Stop: 09/02/22 12:29 Insulin Aspart (Insulin Aspart Per Unit) 0 units SC ACHS SHARMILA Stop: 09/02/22 16:29 Last Admin: 08/05/22 09:41 Dose: 4 units Lorazepam (Lorazepam 0.5 Mg Tab) 0.5 mg PO Q8H PRN PRN Reason: Sedation/Anxiety Stop: 09/02/22 12:29 Last Admin: 08/05/22 07:27 Dose: 0.5 mg Magnesium Hydroxide (Magnesium Hydroxide Susp 30 Ml Udc) 30 ml PO Q24H PRN PRN Reason: Constipation Stop: 09/02/22 12:29 Metoclopramide HCl (Metoclopramide Hcl Inj 5 Mg/Ml 2 Ml Vial) 10 mg IV Q6H PRN PRN Reason: Nausea &/or Vomiting Stop: 09/02/22 12:29 Metoprolol Succinate (Metoprolol Succ 25mg Ext Rel Tab) 25 mg PO QPM SHARMILA Stop: 09/02/22 20:59 Last Admin: 08/04/22 21:27 Dose: 25 mg Miscellaneous (Ipratropium 0.03%-Order Awaiting Action) 1 each N/A QS SHARMILA Stop: 09/02/22 15:59 Last Admin: 08/05/22 07:30 Dose: Not Given Miscellaneous (Carbohydrates For Hypoglycemia ) 15 - 30 gm PO UD PRN PRN Reason: Hypoglycemia Treatment Stop: 09/02/22 13:29 Last Admin: 08/03/22 20:22 Dose: 15 gm Miscellaneous Information (Pharmacy Glycemic Mgmt Consult) 1 each N/A UD PRN PRN Reason: Consult Stop: 09/02/22 12:29 Naloxone HCl (Naloxone Hcl 0.4 Mg/1 Ml Vial/Carp) 0.1 mg IV Q5M PRN PRN Reason: Oversedation/Resp depression Stop: 09/02/22 12:29 Ondansetron HCl (Ondansetron Inj 2 Mg/Ml 2 Ml Vial) 4 mg IV Q6H PRN PRN Reason: Nausea &/or Vomiting Stop: 09/02/22 12:29 Ondansetron HCl (Ondansetron 4 Mg Od Tab) 4 mg PO Q6H PRN PRN Reason: Nausea Stop: 09/02/22 12:29 Oxycodone HCl (Oxycodone Hcl Ir 5 Mg Tab (Immediate Release)) 5 - 10 mg PO Q4H PRN PRN Reason: Pain & Pre PT Stop: 08/17/22 12:29 Last Admin: 08/05/22 07:27 Dose: 10 mg Pantoprazole Sodium (Pantoprazole 40 Mg Tab) 40 mg PO BID SHARMILA Stop: 09/02/22 20:59 Last Admin: 08/05/22 10:35 Dose: 40 mg Polyethylene Glycol (Polyethylene (Miralax) 17 Gm Pack) 17 gm PO Q6 SHARMILA Stop: 09/03/22 05:59 Last Admin: 08/05/22 09:48 Dose: 17 gm Pregabalin (Pregabalin 75 Mg Cap) 75 mg PO HS SHARMILA Stop: 09/02/22 20:59 Last Admin: 08/04/22 21:27 Dose: 75 mg Senna/Docusate Sodium (Docusate Sodium/Senna 50/8.6mg Tab) 2 tab PO HS SHARMILA Stop: 09/02/22 20:59 Last Admin: 08/04/22 21:27 Dose: 2 tab Sodium Biphosphate/Sodium Phosphate (Sod Phosphate/Sod Biphosphate Enema 132 Ml Btl) 132 ml FL ONE PRN PRN Reason: Constipation Stop: 09/02/22 12:29 Tramadol HCl (Tramadol Hcl 50 Mg Tablet) 50 - 100 mg PO Q4H PRN PRN Reason: Moderate-Severe pain & Pre PT Stop: 09/02/22 12:29 Last Admin: 08/04/22 21:26 Dose: 50 mg Venlafaxine HCl (Venlafaxine Hcl Xr 150 Mg Capxr) 150 mg PO QAM [facility] Stop: 09/03/22 08:59 Last Admin: 08/05/22 10:35 Dose: 150 mg
--- NOTE | 2022-08-05 13:31 | Pharmacy Report ---
Pharmacy Glycemic Short Note 2 - Date of Service August 05, 2022 - Glycemic Short BSG Results (Last 24 hours): 08/04/22 08/04/22 08/04/22 17:02 20:16 23:34 Glucose POC Glucose 151 H 288 H 50 L* 08/04/22 08/05/22 08/05/22 23:52 06:22 07:56 Glucose 131 H POC Glucose 98 158 H 08/05/22 11:52 Glucose POC Glucose 196 H OUTPATIENT ANTIDIABETIC REGIMEN: * Novolog pump * SF 80 * CR 11 * Basal rates- * 00-04: 0.35 units/hr * 04-07 0.5 units/hr * 07-00 0.650 units/hr ASSESSMENT: 08/05/22 * Patient's BSGs yesterday were [id number] and fasting this morning was 158 mg/dL. * Continue Lantus 12 units daily @ dinnertime for now. Patient to be discharged on Saturday per notes. * Tighten CF and CR as patient trends upwards throughout the day. Patient overcorrected at HS for BSG of 288 so loosen HS CF so prevent overnight hypoglycemia. BACKGROUND * Ms Tao is a 72 y/o F with a PMH of Type 1 DM on insulin pump. * Patient's preop BSGs were 229-290 mg/dL and immediately post-op was 298 mg/dL. Patient's insulin pump was at a temp basal rate of 50% prior to surgery and increased to 75% when she arrived at the hospital. * Patient received 12 units IV insulin after surgery. * No steroids given during surgery. * Reviewed insulin pump with patient and she would prefer to stay on pump for now. After surgery BSGs trended down significantly to 135-101 mg/dL. * early childhood educator aide to see patient. PLAN FOR INPATIENT GLYCEMIC CONTROL: * Basal insulin * Lantus 12 units SQ QDD * Bolus insulin * NovoLog per scale ACHS or Q6hrs while NPO * Goal Range: Low 110 mg/dL - High 140 mg/dL * Correction Factor: 40 mg/dL/unit (50 mg/dL/unit at bedtime) * Nutritional / Prandial insulin per carb ratio of 1 unit per 8 grams CHO consumed Thank you.
[2022-08-05] MEDS ORDERED: LANTUS PER UNIT CHARGE SQ ONE (16:30)
[2022-08-05] MEDS: DOCUSATE SODIUM/SENNA 50/8.6MG TAB PO SCH (20:01)
[2022-08-05] MEDS: PREGABALIN 75 MG CAP PO SCH (20:01)
[2022-08-05] MEDS: METOPROLOL SUCC 25MG EXT REL TAB PO SCH (20:12)
[2022-08-05] MEDS: traMADol HCL 50 MG TABLET PO PRN (20:12)
[2022-08-05] MEDS ORDERED: INSULIN ASPART PER UNIT SC SCH (21:00)
[2022-08-06] MEDS: POLYETHYLENE (MIRALAX) 17 GM PACK PO SCH ×3 (00:04→12:56)
[2022-08-06] MEDS: ACETAMINOPHEN 500 MG TAB PO PRN (07:48)
[2022-08-06] MEDS: traMADol HCL 50 MG TABLET PO PRN (07:55)
[2022-08-06] MEDS: LORazepam 0.5 MG TAB PO PRN (07:55)
[2022-08-06] MEDS: PANTOprazole 40 MG TAB PO SCH (08:36)
[2022-08-06] MEDS: VENLAFAXINE HCL XR 150 MG CAPXR PO SCH (08:36)
[2022-08-06] MEDS: INSULIN ASPART PER UNIT SC SCH ×3 (09:00→13:06)
--- NOTE | 2022-08-06 10:59 | Discharge Summary ---
Date of Service August 06, 2022 Admission HPI Per Admitting Provider This is a 72-year-old female who presents with chronic persistent back and leg pain. After failing since course of nonoperative care is here for surgical invention. Principal Diagnosis Lumbar spinal stenosis with radiculopathy Discharge Data Allergies Allergy/AdvReac Type Severity Reaction Status Date / Time Iodinated Contrast Media Allergy Intermediate HIVES Verified 08/03/22 06:36 prochlorperazine Allergy Intermediate "CLIMBS Verified 08/03/22 06:36 THE SOL" promethazine Allergy Intermediate "CLIMBS Verified 08/03/22 06:36 THE SOL" nalbuphine [From Nubain] AdvReac Severe Hypotension Verified 08/03/22 06:36 morphine AdvReac Mild redness/itching Verified 08/03/22 06:36 at injection site Consultations 08/03/22 12:30 Consult Hospitalist Routine Procedures Performed Operation Date: 08/03/22 07:45 Actual Procedures p L4-L5 Decompression and Fusion, Spinal Cord Monitoring(Not Applicable) - Rip Pena DO Ordered Studies 08/03/22 07:45 FL lumbar spine 2-3V Routine Hospital Course (1) Neurogenic claudication due to lumbar spinal stenosis: Patient with lumbar decompression fusion tolerated this well second orthopedic for postoperative. Postop and when she was up and ambulating progress postop 2 and postoperative 3 pain was controlled IVONNE drain decreased appropriately. Excellent strength testing. Subsequent discharge home. Discharge orders instructions from the chart for further review. Total Time Total Time Spent Total Time Spent (In Minutes): 20 minutes Discharge Plan Discharge Items Patient Disposition: Home - Self-Care Reason For Visit: Spinal Stenosis, Lumbar Region without Neurogenic Discharge Diagnosis: Lumbar spinal stenosis with radiculopathy Activity: As commented below Non-emergency contact: Primary Care Provider Call non-emergency contact if: you have any medication questions Follow-up/Referrals: Juan Antonio Triplett MD [Primary Care Provider] - Diet: Regular Addtl Attending Provider Instructions: ACTIVITY RECOMMENDATIONS: SELF CARE INSTRUCTIONS AFTER THORACIC/LUMBAR FUSIONS 1. You may walk to your tolerance. It is good exercise for your legs and back. Expect some back and intermittent leg aches and pains. 2. You may perform "counter-top" level activities (make a sandwich, mary with a project, etc.). 3. No bending or lifting of more than 10 pounds or back twisting of any nature (roll like a log when turning in bed). 4. You may ride in a car for 20-30 minutes at a time. No driving until after your first visit with your doctor. 5. Frequent changes of position and restricting sitting to 30 minutes at a time will help limit the amount of back spasms and stiffness you may experience. 6. You may discontinue the use of ambulatory aids (cane, crutches, etc.) once your strength and confidence allow. 7. You may appliance installer the shower and let water strike your incision when you arrive home at least once daily. Do not take a tub bath, sit in a hot tub or go into a swimming pool until after your first recheck in the office. SPECIAL CARE INSTRUCTIONS: VERY IMPORTANT TO READ AND REVIEW A. Your surgical incision has been closed with a cosmetic suture under the skin that will dissolve in about 6 weeks. In 14 days, you can use a pair of clean scissors and cut the suture that is left outside of the skin at the ends of your incision. 1. The small skin tapes can be removed 7 days after surgery if they have not fallen off by that point. 2. You may keep the wound open to air as much as possible to promote healing after post-op day number 5 unless told otherwise by your doctor. 3. If you think the wound looks like it is becoming infected (redness or worsening drainage) and/or you are experiencing fever, chill or worsening back pain and muscle spasms, contact the office so that we may evaluate you as soon as possible. B. Complications are uncommon, but please contact us if you have any signs or symptoms of: 1. wound infection (fever higher than 102.5 degrees F, redness, separation of wound, drainage, or increasing pain from the incision) 2. blood clots in legs (pain, swelling, redness and warmth in legs) 3. urinary tract infection (fever higher than 102.5 degrees F, burning upon urination or increased frequency of urination) 4. nerve problems (inability to walk on your toes or heels, numbness, loss of bowel or bladder control) 5. any other symptoms that concern you C. Please call the office at if you have any concerns or questions about your operation or recovery. D. No smoking! Smoking drastically decreases the chance of a solid fusion. E. Do not take any anti-inflammatory medications (Indocin, Advil, Motrin, Aspirin, Naprosyn, etc.) as these may inhibit the chance of a solid fusion. Tylenol is okay to take for pain. MANAGING PAIN AFTER SPINAL SURGERY 1. Narcotic medication is intended for short-term use and will be provided for surgical pain. Surgical pain usually lasts for a period of 4-6 weeks. Narcotic medication includes Percocet, Vicodin, Darvocet, Tylenol #3 or Lortab. 2. Longer-term pain is more appropriately treated with non-narcotic medication such as Tylenol ES. 3. Muscle spasm is not appropriately treated with narcotics. Muscle relaxers such as Soma, Flexeril or Skelaxin can be used along with Tylenol ES. 4. Remember that we all live with some "aches and pains". This is not unusual or uncommon after an injury or as we get older. a. Back pain is expected and may include muscle spasms for 4 to 6 weeks after surgery. The pain should gradually improve. If the pain worsens for no apparent reason, please contact the office. b. Intermittent leg pain may also be experienced and should not be concerned about unless it worsens for no apparent reason. If so, please contact the office. 5. We will provide appropriate medication within the normal guidelines of their prescribed use. We will also be very cautious and aware of potential abuse and extended duration of patients' medication needs. a. Pain medications are for your comfort and to assist with sleep and rest so that the tissue can heal. They are not provided in order to return to normal activity and should not be used through the day. To do so or worsening pain at night can result from ongoing tissue damage and development of tolerance to the prescribed medicine. 6. Please allow 2-3 days to process refills. Prescriptions will not be mailed but must be picked up at the office. FOLLOW UP VISIT: Keep your scheduled follow-up appointment. Any questions, please call the office at . Pending Studies at Discharge: No Stand-Alone Forms: [employer] Smoking Cessation Medications and DC Order Prescriptions: New tramadol 50 mg tablet 50 mg PO Q6H PRN (Reason: pain, moderate) Qty: 30 0RF oxycodone 5 mg tablet 5 mg PO Q6H PRN (Reason: pain, severe) Qty: 30 0RF Continued (DME) BD Insulin Syringe (half unit) 0.3 mL 31 gauge x 5/16" syringe See Rx Instructions .ROUTE .MEDSUPPLY Qty: 100 3RF Rx Instructions: As directed to use with Novolog ipratropium bromide 21 mcg (0.03 %) spray,non-aerosol 2 spray intranasal BID Qty: 30 2RF Rx Instructions: administer into each nostril pregabalin [Lyrica] 75 mg capsule 75 mg PO HS (DME) Dexcom G6 Sensor Device See Rx Instructions .ROUTE .MEDSUPPLY Qty: 3 Rx Instructions: As directed (DME) Dexcom G6 Transmitter Device See Rx Instructions .ROUTE .MEDSUPPLY Qty: 1 Rx Instructions: As directed metoprolol succinate 25 mg tablet extended release 24 hr 25 mg PO QPM insulin aspart U-100 [Novolog U-100 Insulin aspart] 100 unit/mL solution See Rx Instructions .ROUTE .COMPLEX Label Comments: 50% of regular dose for today Rx Instructions: Via insulin pump omeprazole 20 mg Capsule,Delayed Release(Dr/Ec) 20 mg PO BID ondansetron HCl [Zofran] 8 mg Tablet 8 mg PO Q8H PRN (Reason: Nausea And Vomiting) tramadol [Ultram] 50 mg tablet 50 mg PO Q6H PRN (Reason: Pain) venlafaxine [Effexor XR] 150 mg Capsule,Extended Release 24hr 150 mg PO QAM oxycodone 5 mg tablet 5 mg PO Q6H PRN (Reason: Pain) Rx Instructions: Initial Treatment Discharge Orders: Discharge Order (Routine); Ordered 08/06/22 Ordered By: Rip Pena Admission Data Admit Date/Time: 08/03/22 09:29 Attending Provider: Rip Pena Admit Provider: Rip Pena Primary Care Provider: Juan Antonio Triplett Other Providers: Ethel Brandon ; Amarilys Alcantara
--- NOTE | 2022-08-06 17:32 | Hospitalist Progress Note ---
Date of Service August 06, 2022 Assessment & Plan (1) Neurogenic claudication due to lumbar spinal stenosis: Plan: POD#3 L4-S1 decompression and fusion by Dr. Pena Activity and wound care orders as per ortho Pain control with bowel regimen PT/OT Hemoglobin dropped from 11.8-9.3 and will monitor Remains hemodynamically stable Minimal back pain without any other symptoms Medically stable to be discharged (2) Diabetes mellitus type 1: Plan: Blood sugar is running high around 200 Has been under glycemic control pharmacist Blood sugar is controlled No significant hypo and hyperglycemia (3) Insulin pump status: Plan: Hgb A1c 8.3 05/2022 Discussed with glycemic pharmacist, will have patient discontinue insulin pump and start SQ basal/bolus regimen (4) History of atrial tachycardia: Plan: Heart rate remains around 92 Heart rate remains stable at 70s Rate remains controlled (5) Second degree AV block: (6) Pacemaker: Plan: No acute issues Continue metoprolol (7) DVT prophylaxis: Plan: TEDS/SCDs as per spine ortho Thank you for this consultation. We will follow the patient with you during their hospital stay. Admission and Anticipated Discharge Date Admission Date: August 03, 2022 Subjective 08/04/2022 The patient was seen and examined in medical floor She is status post L4-L5 decompression and fusion Has been complaining of back pain which seems to be under control now Denies any other symptoms 08/05/2022 The patient was seen and examined in medical floor She is out of bed on a chair Minimal pain at the back without radiation Denies any other symptoms 08/06/2022 The patient was seen and examined in medical floor She has been complaining of minimal pain in the lower back Has been sitting on bed without any other apparent distress She will be discharged home today Review of Systems Review of Systems: All systems reviewed and are unremarkable except as noted below Musculoskeletal: Ongoing back pain status post lumbar decompression and fusion as above Physical Exam Physical Exam: Sitting at the edge of the bed without any apparent distress Constitutional: average body habitus; not ill appearing Eyes: PERRL, conjunctivae normal, anicteric sclerae ENMT: external ear and nose normal, oropharynx normal Neck: trachea midline, no thyromegaly Respiratory: no respiratory distress Auscultation: lungs clear to auscultation bilaterally Cardiovascular: Rate/Rhythm: regular rate and regular rhythm; not tachycardic Heart Sounds: normal S1, normal S2 and + murmur Extremities: + edema (Trace edema bilaterally) Gastrointestinal (Abdomen): Inspection/Auscultation: normal bowel sounds; abdomen not distended Percussion/Palpation: abdomen soft; abdomen nontender Musculoskeletal: Spine: + pain with thoraco-lumbar ROM Neurologic: normal sensation to monofilament and moves all extremities; no focal motor deficits Psychiatric: A+Ox3, euthymic affect Lymphatic: no cervical or axillary lymphadenopathy Results & Data Results & Data ([facility]) Vital Signs (Past 12 Hours) Vital Signs Temp Pulse Resp BP Pulse Ox O2 Del Method 08/06/22 07:39 36.8 C 73 14 171/69 H 100 Room Air
== END 2022-08-06 14:13 | disposition home or self-care (01) | DRG 455 ==
LOC: ASU 06:08 → 3E 09:29

== ENCOUNTER 2025-05-29 11:48 | Inpatient (IN) ==
[2025-05-29] MEDS: SODIUM CHLORIDE 0.9% 1,000 ML IV SCH (12:21)
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
[2025-05-29 12:40] LABS: Base Excess VBG 4.0 mEq/L; HCO3 VBG 30 mmol/L; Oxygen Saturation VBG < 60.0 %; PCO2 VBG 48 mmHg (38-50); PO2 VBG < 20 mmHg; pH VBG 7.40 (7.36-7.41)
[2025-05-29] MEDS: NovoLIN-R INSULIN PER UNIT CHARGE IV STA (12:43)
[2025-05-29 12:47] LABS: Hematocrit (blood only) 41.4 % (37.0-47.0); Hemoglobin 13.4 g/dl (12.0-16.0); Immature Granulocytes # (auto) 0.01 K/uL (0.01-0.20); Immature Granulocytes % (auto) 0.1 %; Mean Corpuscular Hemoglobin 25.2 pg (25.0-34.0); Mean Corpuscular Volume 77.8 fL (80.0-100.0); Platelet Count 182 K/uL (130-400); RDW Standard Deviation 40.8 fL (36.4-46.3); Red Blood Count 5.32 M/uL (4.20-5.40); White Blood Count 7.74 K/ul (4.8-10.8)
--- NOTE | 2025-05-29 12:56 | CT Scan Report ---
ABDOMEN AND PELVIS CT WITHOUT CONTRAST CT DOSE: 580.81 mGy.cm HISTORY: Acute nausea and vomiting with generalized abdominal pain nausea and vomiting previous appy TECHNIQUE: Multiaxial CT images of the abdomen and pelvis were performed without contrast. A dose lo wering technique was utilized adhering to the principles of ALARA. COMPARISON STUDY: 03/22/2023 FINDINGS: Dense mitral annular calcifications. Partially imaged cardiac pacer leads. The lung bases a re clear. No pneumatosis or pneumoperitoneum. The unenhanced spleen, atrophic pancreas and adrenal gl ands are unremarkable. Cholecystectomy. Unremarkable liver. There are approximately 3 nonobstructing calculi in the right kidney measuring up to 3 mm. There are approximate 4 nonobstructing calculus at the left kidney measuring up to 4 mm. No ureteral calculi or hydronephrosis identified. Probable small right renal cyst. Urinary bladder wall thickening with par tial distention. The uterus appears surgically absent. Atherosclerosis of the aorta. No lymphadenopat hy. No bowel obstruction or bowel wall thickening. Moderate colonic fecal retention. Anterior abdominal w all stimulator device is noted with leads projecting along the greater curvature of the distal stomac h. Appendix not visualized. Degenerative and postoperative changes of the spine. Chronic sacral fract ure deformity. IMPRESSION: 1. No acute intra-abdominal or intrapelvic abnormality. 2. No bowel obstruction or bowel wall thickening. 3. Nonobstructing bilateral nephrolithiasis. 4. Chronic findings as above. ACT 112: Negative or not required by law. The above report was generated using voice recognition software. It may contain grammatical, syntax o r spelling errors. Electronically signed by: Chirag Sosa M.D. 05/29/2025 12:54 PM
[2025-05-29 13:17] LABS: Alanine Aminotransferase 14.0 U/L (7-52); Albumin Globulin Ratio 1.5 (0.9-2); Alkaline Phosphatase 94.0 U/L (34-104); Anion Gap 10.0 (3-11); Bilirubin,Total 0.7 mg/dl (0.2-1.0); Blood Urea Nitrogen 14.0 mg/dl (6-23); Calcium 9.8 mg/dl (8.6-10.3); Carbon Dioxide 28.0 mmol/L (21-32); Chloride 97.0 mmol/L (98-107); Creatinine Clr Calc Pharmacy 55.3 ml/min; Globulin 3.1 gm/dl (2.5-4.0); Glucose 414.0 mg/dl (70-99(Fasting)); Lipase 5.0 U/L (11-82); Potassium 4.1 mmol/L (3.5-5.1); Sodium 135.0 mmol/L (136-145); Total Protein 7.6 gm/dl (6.0-8.3)
[2025-05-29 14:02] LABS: Appearance Urine Clear (Clear); Glucose Urine UA 3+ (Negative)
[2025-05-29] MEDS: METOCLOPRAMIDE HCL INJ 5 MG/ML 2 ML VIAL IV STA (14:24)
[2025-05-29] MEDS: ONDANSETRON INJ 2 MG/ML 2 ML VIAL IV STA (14:24)
[2025-05-29] MEDS ORDERED: GLUCOSE 10 TAB/TUBE PO PRN (15:32)
[2025-05-29] MEDS ORDERED: GLUCOSE 40% GEL 15 GM TUBE PO PRN (15:32)
[2025-05-29] MEDS ORDERED: PHARMACY GLYCEMIC MGMT CONSULT PRN (15:32)
[2025-05-29] MEDS ORDERED: GLUCAGON FOR INJ 1 MG VIAL SQ PRN (15:32)
[2025-05-29] MEDS: METOPROLOL TARTRATE 1 MG/ML VIAL IV STA (15:38)
[2025-05-29] MEDS: MAGNESIUM SULFATE / D5W 1 GM/100 ML BAG IV SCH (15:40)
[2025-05-29 16:22] LABS: Amphetamines+Metham, Urine Neg (Neg); MDMA (Ecstacy), Urine Neg (Neg); Marijuana, Urine Neg (Neg)
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
[2025-05-29] MEDS ORDERED: ACETAMINOPHEN 325 MG TAB PO PRN (16:52)
[2025-05-29] MEDS ORDERED: METOPROLOL TARTRATE 1 MG/ML VIAL IV PRN (16:52)
[2025-05-29] MEDS ORDERED: POLYETHYLENE (MIRALAX) 17 GM PACK PO PRN (16:52)
[2025-05-29] MEDS: INSULIN ASPART PER UNIT CHARGE SC SCH (18:09)
[2025-05-29] MEDS: LACTULOSE SYRUP 20 GM/30 ML UDC PO ONE (18:10)
[2025-05-29] MEDS: ENOXAPARIN INJ 40 MG/0.4 ML SYR SQ SCH (18:10)
[2025-05-29] MEDS: LORazepam 0.5 MG TAB PO PRN (19:20)
[2025-05-29] MEDS: METOCLOPRAMIDE HCL INJ 5 MG/ML 2 ML VIAL IV PRN (19:20)
--- NOTE | 2025-05-29 20:30 | Communication Note ---
Date of Service: May 29, 2025
[2025-05-29] MEDS: LANTUS PER UNIT CHARGE SQ SCH (20:33)
[2025-05-29] MEDS: METOPROLOL SUCC 25MG EXT REL TAB PO SCH (20:37)
[2025-05-29] MEDS: PREGABALIN 100 MG CAP PO SCH (20:40)
[2025-05-29] MEDS ORDERED: PREGABALIN 75 MG CAP PO SCH (21:00)
[2025-05-29] MEDS: DEXTROSE 50% 50 ML SYRINGE IV PRN (22:07)
[2025-05-29] MEDS: D5W AND NSS 1,000 ML IV SCH (23:48)
[2025-05-30 06:29] LABS: Hematocrit (blood only) 30.8 % (37.0-47.0); Hemoglobin 10.3 g/dl (12.0-16.0); Mean Corpuscular Hemoglobin 25.9 pg (25.0-34.0); Mean Corpuscular Volume 77.4 fL (80.0-100.0); Platelet Count 133 K/uL (130-400); RDW Standard Deviation 40.7 fL (36.4-46.3); Red Blood Count 3.98 M/uL (4.20-5.40); White Blood Count 4.11 K/ul (4.8-10.8)
[2025-05-30 06:58] LABS: Anion Gap 6.0 (3-11); Blood Urea Nitrogen 7.0 mg/dl (6-23); Calcium 8.2 mg/dl (8.6-10.3); Carbon Dioxide 26.0 mmol/L (21-32); Chloride 110.0 mmol/L (98-107); Creatinine Clr Calc Pharmacy 86.2 ml/min; Glucose 125.0 mg/dl (70-99(Fasting)); Magnesium 2.0 mg/dl (1.7-2.4); Potassium 3.3 mmol/L (3.5-5.1); Sodium 142.0 mmol/L (136-145)
[2025-05-30] MEDS: VENLAFAXINE HCL XR 150 MG CAPXR PO SCH (08:40)
[2025-05-30] MEDS: METOCLOPRAMIDE HCL INJ 5 MG/ML 2 ML VIAL IV SCH (08:40)
[2025-05-30] MEDS: POTASSIUM CHLORIDE 20 MEQ/15 ML UDC PO STA (08:40)
[2025-05-30 08:44] LABS: Hemoglobin A1C 9.4 % (4.5-5.6)
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
--- NOTE | 2025-05-30 11:39 | Hospitalist Progress Note ---
Date of Service May 30, 2025 Assessment & Plan (1) Type 1 diabetes mellitus with hyperglycemia, with long-term current use of insulin: (2) Poorly controlled type 1 diabetes mellitus with gastroparesis: (3) Diabetic retinopathy associated with type 1 diabetes mellitus: (4) Essential hypertension: (5) Depression: (6) Hypokalemia: Plan Patient 75-year-old female with known uncontrolled diabetes type 1 recently transitioning from insulin pump to subcutaneous insulin. Presents with hyperglycemia and exacerbation of her diabetic gastroparesis most likely due to the hyperglycemia. Patient's symptoms have improved Can transition to MedSurg Transition to oral Reglan Continue to work with pharmacy on the basal bolus insulin dosing and monitoring her sugars. Patient is a very fragile diabetic, did have some mild hypoglycemia overnight. Patient reports that this happens often at home where she goes from hyperglycemia to hypoglycemia quite quickly. Adjust antihypertensive medications for better blood pressure control Replace potassium Encourage activity Monitor laboratory studies in a.m. Admission and Anticipated Discharge Date Admission Date: May 29, 2025 Subjective Patient reports feeling a little bit better. Less nauseated. Able to eat some food this morning. Patient reports just being taking off in her insulin pump within the past 30 days. Has had trouble managing her sugars transitioning to the basal bolus regiment. Does not recall what her total insulin use was when she was on the pump in a 24-hour period time Physical Exam Physical Exam: Constitutional: Alert, nontoxic HEENT: Mucous membranes moist. Lungs: Clear to auscultation, decreased, no wheezes rales or rhonchi CV: S1-S2, regular Abdomen: Soft, nontender, nondistended, normoactive bowel sounds Extremities: No significant edema Neuro: No focal deficits Psych: Cooperative, flat affect, depressed mood Results & Data Results & Data Vital Signs (Past 12 Hours) Vital Signs Temp Pulse Resp BP Pulse Ox O2 Del Method 05/30/25 08:00 Room Air 05/30/25 07:56 36.6 C 96 H 18 162/66 H 99 Room Air 05/30/25 03:14 36.5 C 89 16 152/75 H 94 Room Air Diagnostic Findings Reviewed imaging, laboratory and diagnostic studies. Pertinent findings as below. WBCs 4.1 Hemoglobin 10.3, decreased, however appears to be that this is more her usual baseline hemoglobin, suspect was hemoconcentrated at the time of admission Potassium 3.3 Chloride 110 Creatinine 0.52 Hemoglobin A1c 9.4%
[2025-05-30] MEDS: METOPROLOL SUCC 25MG EXT REL TAB PO STA (13:58)
--- NOTE | 2025-05-30 14:07 | Pharmacy Report ---
Pharmacy Glycemic Short Note 2 - Date of Service May 30, 2025 - Glycemic Short BSG Results (Last 24 hours): 05/29/25 05/29/25 05/29/25 14:21 16:43 20:10 Glucose POC Glucose 195 H 235 H 298 H 05/29/25 05/29/25 05/29/25 22:03 22:04 22:22 Glucose POC Glucose 34 L* 35 L* 133 H 05/29/25 05/29/25 05/29/25 23:05 23:21 23:47 Glucose POC Glucose 35 L* 177 H 109 H 05/30/25 05/30/25 05/30/25 01:00 02:29 05:14 Glucose 125 H POC Glucose 95 147 H 05/30/25 05/30/25 05/30/25 05:19 08:18 11:25 Glucose POC Glucose 126 H 94 234 H OUTPATIENT ANTIDIABETIC REGIMEN: * Lantus 15 units SQ QPM * NovoLog SQ TIDM CR 12 Max TDD 60 * HbA1x 9.4% 05/30/25 ASSESSMENT: * Jeannette is a 75 year old female admitted with hyperglycemia/gastroparesis and a history of type 1 diabetes mellitus. Pharmacy has been consulted to assist with glycemic management while inpatient. * BSGs in 400s upon admission, given 8 units IV regular insulin and started on basal bolus regimen. She reports recently transitioning off an insulin pump and having trouble controlling her sugars. Lantus at home dose and NovoLog initiated yesterday evening. Correction factor likely too aggressive and patient had an episode of severe hypoglycemia overnight with shakiness and diaphoresis noted. Required short term dextrose infusion overnight. BSGs normalized this AM. * Fasting BSG this AM slightly below goal range, will allow for about a 10% reduction in basal insulin this evening if BSGs are below goal range. * NovoLog signficantly and higher goal range initiated due to history of labile BSGs. Carbohydrate ratio at reported home usage. No glycemic stressors noted at this time. PLAN FOR INPATIENT GLYCEMIC CONTROL: * Basal insulin * Lantus 13-15 units SQ HS * Bolus insulin * NovoLog per scale ACHS or Q6hrs while NPO * Goal Range: Low 140 mg/dL - High 180 mg/dL * Correction Factor: 45 mg/dL/unit * Nutritional / Prandial insulin per carb ratio of 1 unit per 12 grams CHO consumed
[2025-05-30] MEDS ORDERED: LANTUS PER UNIT CHARGE SQ SCH (16:00)
[2025-05-30] MEDS: METOCLOPRAMIDE HCL 10 MG TABLET PO SCH (16:59)
[2025-05-30] MEDS: LANTUS PER UNIT CHARGE SQ SCH (17:10)
[2025-05-30] MEDS: METOPROLOL SUCC 25MG EXT REL TAB PO SCH (20:23)
[2025-05-30] MEDS: MIRTAZAPINE TAB 15 MG TAB PO SCH (20:23)
[2025-05-30] MEDS: POTASSIUM CHLORIDE 20 MEQ/15 ML UDC PO SCH (20:23)
[2025-05-30] MEDS: MELATONIN 3 MG TAB PO PRN (22:19)
[2025-05-30] MEDS: CARBOHYDRATES FOR HYPOGLYCEMIA PO PRN (22:47)
[2025-05-31 07:46] VITALS: RESP 16
[2025-05-31 11:38] LABS: Hematocrit (blood only) 32.9 % (37.0-47.0); Hemoglobin 10.6 g/dl (12.0-16.0); Mean Corpuscular Hemoglobin 25.3 pg (25.0-34.0); Mean Corpuscular Volume 78.5 fL (80.0-100.0); Platelet Count 155 K/uL (130-400); RDW Standard Deviation 42.1 fL (36.4-46.3); Red Blood Count 4.19 M/uL (4.20-5.40); White Blood Count 4.67 K/ul (4.8-10.8)
[2025-05-31 11:49] LABS: Anion Gap 6.0 (3-11); Blood Urea Nitrogen 7.0 mg/dl (6-23); Calcium 8.9 mg/dl (8.6-10.3); Carbon Dioxide 28.0 mmol/L (21-32); Chloride 106.0 mmol/L (98-107); Creatinine Clr Calc Pharmacy 63.1 ml/min; Glucose 195.0 mg/dl (70-99(Fasting)); Magnesium 1.8 mg/dl (1.7-2.4); Potassium 3.8 mmol/L (3.5-5.1); Sodium 140.0 mmol/L (136-145)
--- NOTE | 2025-05-31 12:09 | Discharge Summary ---
Discharge Summary Date of Service May 31, 2025 Principal Dx & Hospital Course #1 = Principal Diagnosis (1) Type 1 diabetes mellitus with hyperglycemia, with long-term current use of insulin: (2) Poorly controlled type 1 diabetes mellitus with gastroparesis: (3) Diabetic retinopathy associated with type 1 diabetes mellitus: (4) Essential hypertension: (5) Depression: (6) Hypokalemia: Plan Patient 75-year-old female with known diabetes and long standing history of gastroparesis presents to the emergency room with complaints of nausea and vomiting over the last couple days. In the emergency room she was tachycardic and restless and had a significantly elevated glucose. She was not in DKA. Patient was admitted to the hospital. She given fluid resuscitation and additional insulin to manage her glucose. She was given antiemetics and and her diet was slowly advanced. As her sugar became more controlled her nausea improved. Did give a trial of Reglan in the setting of her chronic gastroparesis. She responded favorably to this. Patient also has significant history of depression. Psychiatry consultation was obtained. They recommended starting mirtazapine at bedtime. She tolerated this the first night. On the morning of discharge she was feeling significantly improved. Nausea and vomiting completely resolved. She is able to tolerate her diet. She was seen by diabetes education and is going to pursue looking into the insulin pods as a other means of managing her diabetes. 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 Did not seem to tolerate the Reglan for long-term. Will discontinue that. Use Zofran as needed for nausea. However I think ultimately if controlling her diabetes optimally that will control her gastroparesis and prevent the readmissions. She will follow-up with her outpatient factors. Notes For Next Care Provider Continue to find the best way to manage her diabetes, consider insulin pods Medication Changes From Visit Zofran as needed Mirtazapine at bedtime Metoprolol 2 times daily for blood pressure control Admission HPI Per Admitting Provider Ms. Johnson is a 75 year old woman with past medical history remarkable for anxiety/restlessness PAT s/p RA in superior posterior lateral ablation 01/29/2013, 2nd degree AV Block s/p dual chamber ppm on 08/10/2015, DMTI, HTN, HLD with Statin Intolerance, JORDI, gastroparesis s/p POEM, and IBS-C who presented to [facility] ED due to 48 hours of nausea and vomiting. Patient states she hasn't been febrile. She denies nausea or vomiting. She reports that she was removed off her insulin pump last year given episodic hypoglycemia and since then she has been doing sliding scale (as she remembers) and lantus. She reports severe gastroparesis and this feels like her flares. Exam was limited as patient was pacing from bed to bedside chair reporting "restlessness"...She was tachycardic to the 140s and rubbing her legs. She notes she is very anxious and doesn't want to be in the hospital. She states that she has never seen a psychiatrist, but this restlessness makes it very difficult for her. Before able to engage in further questioning, she requested to leave multiple times. It was advised not to leave given heart rates and history of SVT. Ativan and metoprolol were administered with improvement. Patient report subjective improvement in nausea. Patient denies any bowel symptoms or urinary concerns. In the ED, vitals were notable for BP of 150-180s HR of 80s-140s and O2 sat of high 90s on room air Imaging revealed nonobstructing nephrolithiasis, moderate colonic stool burden ED interventions: reglan, insulin 8 units, 2L IVF Patient to be admitted to PCU for further evaluation and management of nausea and vomiting, admitted to PCU 2/2 concern for possible SVT event, plan for downgrade as able v discharge Admission Exam Per Admitting Provider See H&P Discharge Exam Constitutional: Alert HEENT: Mucous membranes moist. Lungs: Clear to auscultation, decreased, no wheezes rales or rhonchi CV: S1-S2, regular Abdomen: Soft, nontender, nondistended Extremities: No significant edema Neuro: No focal deficits Psych: Cooperative, normal mood Updated Medication List Medication Instructions Recorded Confirmed Type pregabalin 75 mg capsule (Lyrica) 75 mg PO BID 03/31/20 05/29/25 History omeprazole 20 mg capsule,delayed 20 mg PO DAILYBB 04/06/20 05/29/25 History release venlafaxine 150 mg 150 mg PO QAM 10/17/20 05/29/25 History capsule,extended release 24 hr (Effexor XR) blood-glucose sensor (Dexcom G6 #3 ea 11/24/20 03/02/24 History Sensor device) blood-glucose transmitter (Dexcom #1 ea 11/24/20 03/02/24 History G6 Transmitter device) insulin syr/ndl U100 half bette 0.3 #100 ea 03/21/21 03/02/24 Rx mL 31 gauge x 5/16" (BD Insulin Syringe Ultra-Fine (half unit)) evolocumab 140 mg/mL subcutaneous 140 mg subcut Q14D 02/02/25 05/29/25 History syringe insulin aspart U-100 100 unit/mL 1 sliding scale dose subcut 05/29/25 05/29/25 History (3 mL) subcutaneous pen (Novolog TIDWMEAL FlexPen U-100 Insulin aspart) insulin glargine 100 unit/mL (3 15 unit subcut DAILY@1600 05/29/25 05/30/25 History mL) subcutaneous pen (Lantus Solostar U-100 Insulin) lorazepam 0.5 mg tablet (Ativan) 0.5 mg PO DAILY PRN RESTLESSNESS 05/29/25 05/29/25 History metoprolol succinate 25 mg 25 mg PO BID #60 tabs 05/31/25 Rx tablet,extended release 24 hr mirtazapine 15 mg tablet 15 mg PO HS #30 tabs 05/31/25 Rx ondansetron HCl 4 mg tablet 4 mg PO Q6H PRN nausea and 05/31/25 Rx vomiting #14 tabs pregabalin 100 mg capsule (Lyrica) 100 mg PO BID #60 caps 05/31/25 Rx Hospital Stay Data Consultations 05/29/25 14:37 ED Decision to Admit Stat 05/29/25 15:39 Consult Psychiatry Routine Diagnostic Imagining Performed 05/29/25 12:17 CT abd pelvis wo con Stat Reviewed imaging, laboratory and diagnostic studies. Pertinent findings as below. WBCs 4.6 Hemoglobin 10.6 Platelets 155 Potassium 3.8, improved Creatinine 0.71 Hemoglobin A1c 9.4% Pending Results Patient Have Any Pending Studies at Discharge: No Discharge Instructions Given to Patient (Per Discharging Provider) Follow-up with your outpatient providers for ongoing management of your diabetes. Highly suspect that the main reason you ended up in the hospital was the process of transitioning you from your insulin pump to subcutaneous insulin and your sugars becoming more uncontrolled than usual. This exacerbated your gastroparesis. Your blood pressure also was significantly elevated, we increased your metoprolol. Continue to follow with your PCP for additional adjustments of your medications for blood pressure as needed Total Time Total Time Spent Total Time Spent (In Minutes): 33
[2025-05-31 12:17] VITALS: BP 166/74; PULSE 80; TEMP 97.5; O2SAT 98
== END 2025-05-31 13:03 | disposition home or self-care (01) | DRG 74 ==
LOC: ED 11:48 → SUATTDRO 15:38 → EDINP 15:38 → 4W 16:52 → 3W 05-30 10:28

== ENCOUNTER 2025-06-24 13:05 | Inpatient (IN) ==
--- NOTE | 2025-06-24 13:33 | Emergency Department Note ---
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 06/24/25 14:18 Dose: 4 mg Documented By: SAURAV Ondansetron HCl (Ondansetron Inj 2 Mg/Ml 2 Ml Vial) 4 mg IV NOW STA Stop: 06/24/25 15:37 Last Admin: 06/24/25 16:12 Dose: Not Given Documented By: JYOTHI Imaging Data Radiologist's Impression: Abdomen/Pelvis CT 06/24/25 14:05 CT SCAN OF THE ABDOMEN AND PELVIS WITHOUT IV CONTRAST CLINICAL HISTORY: Generalized abdominal pain. Vomiting. Recent fall. COMPARISON STUDY: Abdominal CT dated 05/29/2025 TECHNIQUE: CT scan of the abdomen and pelvis is performed from the lung bases to the proximal femora. Images are reviewed in the axial, sagittal, and coronal planes. IV contrast was not administered for this examination. Note that the examination was performed in suboptimal fashion without IV contrast. There is streak artifact from the arms which could not be elevated above the abdomen. A dose lowering technique was utilized adhering to the principles of ALARA. FINDINGS: Lung bases: The heart is mildly enlarged noting trace pericardial effusion. Pacemaker leads are in place. The mitral annulus is densely calcified. There is a small hiatal hernia. The lung bases are clear. Liver: The unenhanced liver is normal in size, contour, and attenuation. There is no intrahepatic biliary ductal dilatation. Gallbladder: Surgically absent noting clips in the gallbladder fossa. Spleen: Normal in size and attenuation. Pancreas: The unenhanced pancreas is moderately atrophic and grossly unremarkable. Adrenal glands: Unremarkable. Kidneys: The unenhanced kidneys are normal in size and without hydronephrosis. There are at least 2 nonobstructing calculi identified in both kidneys which measure up to 3 mm. No ureteral stone is seen. There is no evidence of contour deforming renal mass lesion. Abdominal vasculature: The abdominal aorta is normal in course and caliber noting advanced atherosclerotic calcification. Bowel: There is no bowel obstruction. Moderate fecal retention is seen throughout the colon. A duodenal diverticulum is incidentally noted. The appendix is not visualized. Peritoneum: There is no intraperitoneal free air or abdominal ascites. An electronic device is seen in the left lower quadrant abdominal wall. Leads extend into the anterior upper abdomen along the anterior aspect of the distal stomach. Lymphadenopathy: None. Pelvic viscera: The bladder is normal as visualized. The uterus is surgically absent. No adnexal lesion is seen. Skeletal structures: The skeletal structures are osteopenic. Postsurgical and spondylotic change is noted in the lumbar spine. There are mild chronic superior endplate compression deformities of T11 and T12. There is also chronic-appearing deformity of the sacrum. No lytic or blastic lesions are seen. There are chronic/healed left-sided rib fractures. IMPRESSION: 1. No acute infectious or inflammatory findings are identified in the abdomen or pelvis on this unenhanced examination. 2. Cardiomegaly and cardiac pacemaker. 3. Bilateral nephrolithiasis. 4. Additional findings as above. ACT 112: Negative or not required by law. Electronically signed by: Kavon Marroquin M.D. 06/24/2025 3:[address] 06/24/25 14:05 CT SCAN OF THE CERVICAL SPINE CLINICAL HISTORY: Trauma. Vomiting. Pain.. COMPARISON STUDY: None TECHNIQUE: CT scan of the cervical spine is performed from the skull base to the upper thoracic spine. Images are reviewed in the axial, sagittal, and coronal planes. IV contrast was not administered for this examination. A dose lowering technique was utilized adhering to the principles of ALARA. CT DOSE: FINDINGS: There is asymmetric pneumatization of the mastoids with chronic sclerotic changes involving the right mastoid. The prevertebral soft tissues are normal. No acute fractures or traumatic subluxations are visualized. There are degenerative changes most pronounced at the C6-7 level with disc space narrowing and posterior osteophyte formation. There is also a calcification within the posterior ligamentous complex at this level. This results in mild to moderate spinal stenosis. There is also a suspected disc bulge/extrusion at the C3-4 level. There is mild biapical pleural-parenchymal scarring. The visualized portions of intracranial contents are unremarkable. IMPRESSION: 1. No acute fractures or traumatic subluxations 2. Multilevel degenerative change with mild to moderate C6-7 spinal stenosis ACT 112: Negative or not required by law. Electronically signed by: Jase Macias M.D. 06/24/2025 3:06 PM Chest X-Ray 06/24/25 14:05 XR chest 1V portable CLINICAL HISTORY: Chest pain, nonspecific COMPARISON STUDY: 06/02/2025 FINDINGS: The cardiac and mediastinal contours are normal. There is a left subclavian dual-chamber central venous pacemaker present. There are calcifications in the region of the mitral valve annulus. There is no failure. There is no focal pulmonary consolidation. There are no pleural effusions.. Incidental note is made of surgical clips in the right upper quadrant, likely secondary to a prior cholecystectomy. IMPRESSION: No acute cardiopulmonary findings. ACT 112: Negative or not required by law. Electronically signed by: Jase Macias M.D. 06/24/2025 3:[address] 06/24/25 14:05 CT head/brain wo con CLINICAL HISTORY: 75 years-old Female with Fall, headache, vomiting. Acute headache with nausea and vomiting and recent fall. Possible concussion. TECHNIQUE: Multiple axial CT images of the head were obtained without contrast. A dose lowering technique was utilized adhering to the principles of ALARA. CT DOSE: 1911.66 mGy.cm COMPARISON: CT cervical spine of same day, brain MRI 07/03/2021, head CT June 21, 2015 FINDINGS: No acute intracranial hemorrhage, midline shift, intracranial mass, hydrocephalus, territorial ischemia or abnormal extra-axial collection. Involutional changes with ex vacuo ventriculomegaly redemonstrated along with chronic microvascular ischemic disease. The calvarium is intact. Prior bilateral lens repair. The paranasal sinuses, mastoid air cells, and middle ear cavities are clear. IMPRESSION: No acute intracranial abnormality or calvarial fracture. ACT 112: Negative or not required by law. The above report was generated using voice recognition software. It may contain grammatical, syntax or spelling errors. Electronically signed by: Chirag Sosa M.D. 06/24/2025 2:53 PM Discharge Plan Visit Data Chief Complaint: GI Assessment Stated Complaint: VOMITING ED Provider: Koko Majano ED Midlevel Provider: Brittaney Dick Discharge Problem: Syncope, Gastroparesis, Pacemaker, Closed head injury, Abdominal pain, Nausea & vomiting Patient Disposition: Admitted As Inpatient Condition: Fair Discharge Instructions Interventions: ED Discharge Assessment Last Done: 06/24/25 20:00 Discharge Problem: Syncope Qualifiers: Encounter type: initial encounter Closed head injury Qualifiers: Encounter type: initial encounter Qualified Code(s): S09.90XA - Unspecified injury of head, initial encounter Abdominal pain Qualifiers: Abdominal location: generalized Qualified Code(s): R10.84 - Generalized abdominal pain Nausea & vomiting Qualifiers: Vomiting type: unspecified Qualified Code(s): R11.2 - Nausea with vomiting, unspecified
[2025-06-24] MEDS: ACETAMINOPHEN 1,000 MG/100 ML VIAL IV STA ×2 (14:18→16:12)
[2025-06-24] MEDS: ONDANSETRON INJ 2 MG/ML 2 ML VIAL IV STA ×2 (14:18→16:12)
[2025-06-24] MEDS: SODIUM CHLORIDE 0.9% 500 ML IV ONE ×2 (14:18→17:11)
[2025-06-24 14:44] LABS: Alanine Aminotransferase 10 U/L (7-52); Albumin Globulin Ratio 1.3 (0.9-2); Alkaline Phosphatase 93 U/L (34-104); Anion Gap 13 (3-11); Bilirubin,Total 0.8 mg/dl (0.2-1.0); Blood Urea Nitrogen 14 mg/dl (6-23); Calcium 10.0 mg/dl (8.6-10.3); Carbon Dioxide 23 mmol/L (21-32); Chloride 100 mmol/L (98-107); Globulin 3.2 gm/dl (2.5-4.0); Glucose 382 mg/dl (70-99(Fasting)); Lipase 6 U/L (11-82); Magnesium 1.8 mg/dl (1.7-2.4); Potassium 4.5 mmol/L (3.5-5.1); Sodium 136 mmol/L (136-145); Total Protein 7.5 gm/dl (6.0-8.3)
--- NOTE | 2025-06-24 14:54 | CT Scan Report ---
CT head/brain wo con CLINICAL HISTORY: 75 years-old Female with Fall, headache, vomiting. Acute headache with nausea and vomiting and recent fall. Possible concussion. TECHNIQUE: Multiple axial CT images of the head were obtained without contrast. A dose lowering tech nique was utilized adhering to the principles of ALARA. CT DOSE: 1911.66 mGy.cm COMPARISON: CT cervical spine of same day, brain MRI 07/03/2021, head CT June 21, 2015 FINDINGS: No acute intracranial hemorrhage, midline shift, intracranial mass, hydrocephalus, territorial ischem ia or abnormal extra-axial collection. Involutional changes with ex vacuo ventriculomegaly redemonstr ated along with chronic microvascular ischemic disease. The calvarium is intact. Prior bilateral lens repair. The paranasal sinuses, mastoid air cells, and m iddle ear cavities are clear. IMPRESSION: No acute intracranial abnormality or calvarial fracture. ACT 112: Negative or not required by law. The above report was generated using voice recognition software. It may contain grammatical, syntax o r spelling errors. Electronically signed by: Chirag Sosa M.D. 06/24/2025 2:53 PM
[2025-06-24] MEDS: LORazepam 1 MG/1 ML SYR ED Inj Use IV STA (15:02)
--- NOTE | 2025-06-24 15:08 | CT Scan Report ---
CT SCAN OF THE CERVICAL SPINE CLINICAL HISTORY: Trauma. Vomiting. Pain.. COMPARISON STUDY: None TECHNIQUE: CT scan of the cervical spine is performed from the skull base to the upper thoracic spine . Images are reviewed in the axial, sagittal, and coronal planes. IV contrast was not administered fo r this examination. A dose lowering technique was utilized adhering to the principles of ALARA. CT DOSE: FINDINGS: There is asymmetric pneumatization of the mastoids with chronic sclerotic changes involving the right mastoid. The prevertebral soft tissues are normal. No acute fractures or traumatic subluxations are visualized. There are degenerative changes most pronounced at the C6-7 level with disc space narrowing and wheel truer ior osteophyte formation. There is also a calcification within the posterior ligamentous complex at t his level. This results in mild to moderate spinal stenosis. There is also a suspected disc bulge/extrusion at the C3-4 level. There is mild biapical pleural-parenchymal scarring. The visualized portions of intracranial contents are unremarkable. IMPRESSION: 1. No acute fractures or traumatic subluxations 2. Multilevel degenerative change with mild to moderate C6-7 spinal stenosis ACT 112: Negative or not required by law. Electronically signed by: Jase Macias M.D. 06/24/2025 3:06 PM
--- NOTE | 2025-06-24 15:12 | CT Scan Report ---
CT SCAN OF THE ABDOMEN AND PELVIS WITHOUT IV CONTRAST CLINICAL HISTORY: Generalized abdominal pain. Vomiting. Recent fall. COMPARISON STUDY: Abdominal CT dated 05/29/2025 TECHNIQUE: CT scan of the abdomen and pelvis is performed from the lung bases to the proximal femora. Images are reviewed in the axial, sagittal, and coronal planes. IV contrast was not administered for this examination. Note that the examination was performed in suboptimal fashion without IV contrast. There is streak artifact from the arms which could not be elevated above the abdomen. A dose lowerin g technique was utilized adhering to the principles of ALARA. FINDINGS: Lung bases: The heart is mildly enlarged noting trace pericardial effusion. Pacemaker leads are in pl [place]. The mitral annulus is densely calcified. There is a small hiatal hernia. The lung bases are chantal r. Liver: The unenhanced liver is normal in size, contour, and attenuation. There is no intrahepatic amalia iary ductal dilatation. Gallbladder: Surgically absent noting clips in the gallbladder fossa. Spleen: Normal in size and attenuation. Pancreas: The unenhanced pancreas is moderately atrophic and grossly unremarkable. Adrenal glands: Unremarkable. Kidneys: The unenhanced kidneys are normal in size and without hydronephrosis. There are at least 2 n onobstructing calculi identified in both kidneys which measure up to 3 mm. No ureteral stone is seen. There is no evidence of contour deforming renal mass lesion. Abdominal vasculature: The abdominal aorta is normal in course and caliber noting advanced atheroscle rotic calcification. Bowel: There is no bowel obstruction. Moderate fecal retention is seen throughout the colon. A duoden al diverticulum is incidentally noted. The appendix is not visualized. Peritoneum: There is no intraperitoneal free air or abdominal ascites. An electronic device is seen i n the left lower quadrant abdominal wall. Leads extend into the anterior upper abdomen along the ante rior aspect of the distal stomach. Lymphadenopathy: None. Pelvic viscera: The bladder is normal as visualized. The uterus is surgically absent. No adnexal lesi on is seen. Skeletal structures: The skeletal structures are osteopenic. Postsurgical and spondylotic change is n oted in the lumbar spine. There are mild chronic superior endplate compression deformities of T11 and T12. There is also chronic-appearing deformity of the sacrum. No lytic or blastic lesions are seen. There are chronic/healed left-sided rib fractures. IMPRESSION: 1. No acute infectious or inflammatory findings are identified in the abdomen or pelvis on this unenh anced examination. 2. Cardiomegaly and cardiac pacemaker. 3. Bilateral nephrolithiasis. 4. Additional findings as above. ACT 112: Negative or not required by law. Electronically signed by: Kavon Marroquin M.D. 06/24/2025 3:10 PM
[2025-06-24 15:14] LABS: Hematocrit (blood only) 39.0 % (37.0-47.0); Hemoglobin 12.6 g/dl (12.0-16.0); Immature Granulocytes # (auto) 0.02 K/uL (0.01-0.20); Immature Granulocytes % (auto) 0.3 %; Mean Corpuscular Hemoglobin 25.8 pg (25.0-34.0); Mean Corpuscular Volume 79.8 fL (80.0-100.0); Platelet Count 178 K/uL (130-400); RDW Standard Deviation 41.4 fL (36.4-46.3); Red Blood Count 4.89 M/uL (4.20-5.40); White Blood Count 6.51 K/ul (4.8-10.8)
--- NOTE | 2025-06-24 15:28 | XRay Report ---
XR chest 1V portable CLINICAL HISTORY: Chest pain, nonspecific COMPARISON STUDY: 06/02/2025 FINDINGS: The cardiac and mediastinal contours are normal. There is a left subclavian dual-chamber ce ntral venous pacemaker present. There are calcifications in the region of the mitral valve annulus. T here is no failure. There is no focal pulmonary consolidation. There are no pleural effusions.. Incid ental note is made of surgical clips in the right upper quadrant, likely secondary to a prior cholecy stectomy. IMPRESSION: No acute cardiopulmonary findings. ACT 112: Negative or not required by law. Electronically signed by: Jase Macias M.D. 06/24/2025 3:26 PM
[2025-06-24 15:45] LABS: INR 1.0 (0.9-1.1); Partial Thromboplastin Time 26 Seconds (21-31); Prothrombin Time 11.1 Seconds (9.0-12.0)
[2025-06-24] MEDS: INSULIN ASPART PER UNIT CHARGE SC STA (16:10)
[2025-06-24] MEDS: METOCLOPRAMIDE HCL INJ 5 MG/ML 2 ML VIAL IV STA (16:11)
[2025-06-24] MEDS: SODIUM CHLORIDE 0.9% 1,000 ML IV ONE (16:12)
[2025-06-24 16:43] LABS: Appearance Urine Clear (Clear); Glucose Urine UA 2+ (Negative)
[2025-06-24] MEDS ORDERED: DEXTROSE 50% 50 ML SYRINGE IV PRN (19:02)
[2025-06-24] MEDS ORDERED: GLUCOSE 40% GEL 15 GM TUBE PO PRN (19:02)
[2025-06-24] MEDS ORDERED: GLUCAGON FOR INJ 1 MG VIAL SQ PRN (19:02)
[2025-06-24] MEDS ORDERED: GLUCOSE 10 TAB/TUBE PO PRN (19:02)
[2025-06-24] MEDS ORDERED: CARBOHYDRATES FOR HYPOGLYCEMIA PO PRN (19:02)
[2025-06-24] MEDS ORDERED: PHARMACY GLYCEMIC MGMT CONSULT PRN (19:02)
[2025-06-24] MEDS ORDERED: ALUMINUM/MAGNESIUM SUSP 30 ML UDC PO PRN (19:18)
[2025-06-24] MEDS ORDERED: MAGNESIUM HYDROXIDE SUSP 30 ML UDC PO PRN (19:18)
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
--- NOTE | 2025-06-24 19:32 | Pharmacy Report ---
Pharmacy Glycemic Short Note 2 - Date of Service June 24, 2025 - Glycemic Short BSG Results (Last 24 hours): 06/24/25 06/24/25 06/24/25 13:10 14:10 15:13 Glucose 382 H* POC Glucose 381 H* 384 H* 06/24/25 17:09 Glucose POC Glucose 320 H* OUTPATIENT ANTIDIABETIC REGIMEN: * Lantus 16 units SC daily@16 * Novolog TID with meals * HbA1c ordered by provider for 06/25/25 ASSESSMENT: * 75 yo F with TYPE 1 diabetes admitted with vomiting. Per H&P, patient has not taken insulin x days priot ro arrival 2nd poor appetite. Patient has a PMH of gastroparesis w enteric device, but this has been for about a month. Surgery planned for next week * Hyperglycemia 2nd insulin insufficiency in T1DM. * Prior hospitalization with hyper- and severe hypoglycemia while on 12-15 units Lantus daily and CHO ratio of 12. Will loosen from these parameters PLAN FOR INPATIENT GLYCEMIC CONTROL: * Basal insulin * Lantus 10 units SC x1 now. Re-assess in AM. * Bolus insulin * NovoLog per scale ACHS or Q6hrs while NPO * Goal Range: Low 140 mg/dL - High 180 mg/dL * Correction Factor: 45 mg/dL/unit * Nutritional / Prandial insulin per carb ratio of 1 unit per 15 grams CHO consumed
[2025-06-24] MEDS: SODIUM CHLORIDE 0.9% 1,000 ML IV SCH (20:21)
[2025-06-24] MEDS: ONDANSETRON INJ 2 MG/ML 2 ML VIAL IV PRN (20:21)
[2025-06-24] MEDS: ACETAMINOPHEN 325 MG TAB PO PRN (20:21)
[2025-06-24] MEDS ORDERED: LANTUS PER UNIT CHARGE SQ SCH (21:00)
[2025-06-24] MEDS: METOPROLOL SUCC 25MG EXT REL TAB PO SCH (21:05)
[2025-06-24] MEDS: PANTOprazole 40 MG/10 ML SYR IV SCH (21:05)
[2025-06-24] MEDS: INSULIN ASPART PER UNIT CHARGE SC SCH (21:11)
[2025-06-24] MEDS: LANTUS PER UNIT CHARGE SC ONE (21:11)
[2025-06-25] MEDS: MELATONIN 3 MG TAB PO PRN (01:18)
[2025-06-25 05:45] LABS: Hematocrit (blood only) 31.7 % (37.0-47.0); Hemoglobin 10.2 g/dl (12.0-16.0); Mean Corpuscular Hemoglobin 25.3 pg (25.0-34.0); Mean Corpuscular Volume 78.7 fL (80.0-100.0); Platelet Count 164 K/uL (130-400); RDW Standard Deviation 41.1 fL (36.4-46.3); Red Blood Count 4.03 M/uL (4.20-5.40); White Blood Count 4.92 K/ul (4.8-10.8)
[2025-06-25 05:59] LABS: Anion Gap 6.0 (3-11); Blood Urea Nitrogen 14.0 mg/dl (6-23); Calcium 9.0 mg/dl (8.6-10.3); Carbon Dioxide 25.0 mmol/L (21-32); Chloride 110.0 mmol/L (98-107); Creatinine Clr Calc Pharmacy 64.3 ml/min; Glucose 130.0 mg/dl (70-99(Fasting)); Magnesium 1.8 mg/dl (1.7-2.4); Potassium 3.8 mmol/L (3.5-5.1); Sodium 141.0 mmol/L (136-145)
[2025-06-25 07:21] LABS: Hemoglobin A1C 9.4 % (4.5-5.6)
[2025-06-25] MEDS: VENLAFAXINE HCL XR 150 MG CAPXR PO SCH (08:24)
--- NOTE | 2025-06-25 10:48 | Hospitalist Progress Note ---
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 #Abd pain/nausea -Secondary to gastroparesis -Similar to all her previous episodes -Labs and CT AP reassuring -Likely due to her gastric stimulator not working due to low battery Plan -Appreciate GI input -Symptom control -IVF -Advance diet as tolerated -Follow electrolytes, replace as needed -Explained to patient and brother that battery exchange is an OP procedure and are not able to transfer to [facility] for this -Will likely have to control symptoms, support nutrition until she can go to [facility] next saturday for her scheduled procedure -Continue PPI IV for now due to inability to tolerate PO #IDDM -SSI -Pharmacy consulted for assistance #HTN urgency -Due to not taking home BP med -Continue metoprolol -Add prn IV hydralazine #Depression -Continue home SNRI I spent a total of 40 minutes coordinating, documenting, and providing care for this patient excluding time spent in the performance of separately billed services. This included personally reviewing all current laboratories and imaging studies, medical reconciliation, outpatient chart review and discussion with specialists Admission and Anticipated Discharge Date Admission Date: June 24, 2025 Subjective c/o gen abdominal pain and nausea, similar to all her other episodes of gastroparesis Physical Exam Physical Exam: Vitals and labs reviewed General: Well appearing, NAD HEENT: EOMI, PERRLA Neck: Supple Cardiac: RRR no rubs gallops or murmurs Lungs: CTA no rhonchi wheezing or rales Abd: S NT ND BS positive MSK: Full ROM. No obvious deformities Ext: No Edema cyanosis Skin: Warm, Dry Neuro: AOx3 No focal deficits. Psych: Normal Mood Results & Data Results & Data Vital Signs (Past 12 Hours) Vital Signs Temp Pulse Pulse Resp BP Pulse Ox O2 Del Method 06/25/25 08:00 Room Air 06/25/25 07:42 75 06/25/25 07:09 36.6 C 97 H 19 177/72 H 97 Room Air 06/25/25 03:20 36.6 C 85 18 135/65 96 Room Air Laboratory Results Abnormal lab results 06/24/25 06/24/25 06/24/25 Range/Units 13:10 14:10 15:13 RBC (4.20-5.40) M/uL Hgb (12.0-16.0) g/dl Hct (37.0-47.0) % MCV 79.8 L (80.0-100.0) fL MPV 13.5 H (9.4-12.4) fL Lymph # (Auto) 1.12 L (1.20-3.40) K/uL Chloride (98-107) mmol/L Anion Gap 13 H (3-11) BUN/Creatinine Ratio (10-20) Glucose 382 H* (70-99(Fasting)) mg/dl POC Glucose 381 H* 384 H* (70-99) mg/dl Hemoglobin A1c (4.5-5.6) % Lipase 6 L (11-82) U/L Urine Glucose (UA) (Negative) Urine Ketones (Negative) 06/24/25 06/24/25 06/24/25 Range/Units 16:32 17:09 21:04 RBC (4.20-5.40) M/uL Hgb (12.0-16.0) g/dl Hct (37.0-47.0) % MCV (80.0-100.0) fL MPV (9.4-12.4) fL Lymph # (Auto) (1.20-3.40) K/uL Chloride (98-107) mmol/L Anion Gap (3-11) BUN/Creatinine Ratio (10-20) Glucose (70-99(Fasting)) mg/dl POC Glucose 320 H* 254 H (70-99) mg/dl Hemoglobin A1c (4.5-5.6) % Lipase (11-82) U/L Urine Glucose (UA) 2+ H (Negative) Urine Ketones 3+ H (Negative) 06/25/25 Range/Units 05:19 RBC 4.03 L (4.20-5.40) M/uL Hgb 10.2 L (12.0-16.0) g/dl Hct 31.7 L (37.0-47.0) % MCV 78.7 L (80.0-100.0) fL MPV (9.4-12.4) fL Lymph # (Auto) (1.20-3.40) K/uL Chloride 110 H (98-107) mmol/L Anion Gap (3-11) BUN/Creatinine Ratio 20.9 H (10-20) Glucose 130 H (70-99(Fasting)) mg/dl POC Glucose (70-99) mg/dl Hemoglobin A1c 9.4 H (4.5-5.6) % Lipase (11-82) U/L Urine Glucose (UA) (Negative) Urine Ketones (Negative) Diagnostic Findings Laboratory Results WBC 4.92 K/ul (4.8-10.8) 06/25/25 05:19 RBC 4.03 M/uL (4.20-5.40) L 06/25/25 05:19 Hgb 10.2 g/dl (12.0-16.0) L 06/25/25 05:19 Hct 31.7 % (37.0-47.0) L 06/25/25 05:19 MCV 78.7 fL (80.0-100.0) L 06/25/25 05:19 MCH 25.3 pg (25.0-34.0) 06/25/25 05:19 MCHC 32.2 g/dL (32.0-36.0) 06/25/25 05:19 RDW Std Deviation 41.1 fL (36.4-46.3) 06/25/25 05:19 RDW Coeff of [place]hell 14.4 % (11.5-14.5) 06/25/25 05:19 Plt Count 164 K/uL (130-400) 06/25/25 05:19 MPV 12.1 fL (9.4-12.4) 06/25/25 05:19 Immature Gran % (Auto) 0.3 % 06/24/25 13:10 Neut % (Auto) 76.2 % 06/24/25 13:10 Lymph % (Auto) 17.2 % 06/24/25 13:10 [place] % (Auto) 5.4 % 06/24/25 13:10 Eos % (Auto) 0.3 % 06/24/25 13:10 Baso % (Auto) 0.6 % 06/24/25 13:10 Neut # (Auto) 4.96 K/uL (1.40-6.50) 06/24/25 13:10 Lymph # (Auto) 1.12 K/uL (1.20-3.40) L 06/24/25 13:10 [place] # (Auto) 0.35 K/uL (0.11-0.59) 06/24/25 13:10 Eos # (Auto) 0.02 K/uL (0.00-0.50) 06/24/25 13:10 Baso # (Auto) 0.04 K/uL (0.00-0.20) 06/24/25 13:10 Immature Gran # (Auto) 0.02 K/uL (0.01-0.20) 06/24/25 13:10 PT 11.1 Seconds (9.0-12.0) 06/24/25 13:10 INR 1.0 (0.9-1.1) 06/24/25 13:10 APTT 26 Seconds (21-31) 06/24/25 13:10 PTT Ratio 1.0 06/24/25 13:10 Sodium 141 mmol/L (136-145) 06/25/25 05:19 Potassium 3.8 mmol/L (3.5-5.1) 06/25/25 05:19 Chloride 110 mmol/L (98-107) H 06/25/25 05:19 Carbon Dioxide 25 mmol/L (21-32) 06/25/25 05:19 Anion Gap 6 (3-11) 06/25/25 05:19 BUN 14 mg/dl (6-23) 06/25/25 05:19 Creatinine 0.67 mg/dl (0.6-1.2) 06/25/25 05:19 Est Cr Clr Drug Dosing 64.3 ml/min 06/25/25 05:19 eGFR 90.53 06/25/25 05:19 BUN/Creatinine Ratio 20.9 (10-20) H 06/25/25 05:19 Glucose 130 mg/dl (70-99(Fasting)) H 06/25/25 05:19 POC Glucose 97 mg/dl (70-99) 06/25/25 08:03 Estimat Average Glucose 223 mg/dl 06/25/25 05:19 Hemoglobin A1c 9.4 % (4.5-5.6) H 06/25/25 05:19 Calcium 9.0 mg/dl (8.6-10.3) 06/25/25 05:19 Phosphorus 3.3 mg/dl (2.5-4.9) 06/25/25 05:19 Magnesium 1.8 mg/dl (1.7-2.4) 06/25/25 05:19 Total Bilirubin 0.8 mg/dl (0.2-1.0) 06/24/25 13:10 AST 20 U/L (13-39) 06/24/25 13:10 ALT 10 U/L (7-52) 06/24/25 13:10 Alkaline Phosphatase 93 U/L (34-104) 06/24/25 13:10 Troponin I High Sens 13.2 pg/ml (0-14) 06/24/25 13:10 Total Protein 7.5 gm/dl (6.0-8.3) 06/24/25 13:10 Albumin 4.3 gm/dl (3.4-5.0) 06/24/25 13:10 Globulin 3.2 gm/dl (2.5-4.0) 06/24/25 13:10 Albumin/Globulin Ratio 1.3 (0.9-2) 06/24/25 13:10 Lipase 6 U/L (11-82) L 06/24/25 13:10 Urine Color Yellow 06/24/25 16:32 Urine Appearance Clear (Clear) 06/24/25 16:32 Urine pH 5.5 (4.5-7.5) 06/24/25 16:32 Ur Specific [place] 1.028 (1.000-1.030) 06/24/25 16:32 Urine Protein Negative (Negative) 06/24/25 16:32 Urine Glucose (UA) 2+ (Negative) H 06/24/25 16:32 Urine Ketones 3+ (Negative) H 06/24/25 16:32 Urine Blood Negative (Negative) 06/24/25 16:32 Urine Nitrite Negative (Negative) 06/24/25 16:32 Urine Bilirubin Negative (Negative) 06/24/25 16:32 Urine Urobilinogen Negative (Negative) 06/24/25 16:32 Ur Leukocyte Esterase Negative (Negative) 06/24/25 16:32 Urine Comment 06/24/25 16:32 Impressions Abdomen/Pelvis CT 06/24/25 14:05 CT SCAN OF THE ABDOMEN AND PELVIS WITHOUT IV CONTRAST CLINICAL HISTORY: Generalized abdominal pain. Vomiting. Recent fall. COMPARISON STUDY: Abdominal CT dated 05/29/2025 TECHNIQUE: CT scan of the abdomen and pelvis is performed from the lung bases to the proximal femora. Images are reviewed in the axial, sagittal, and coronal planes. IV contrast was not administered for this examination. Note that the examination was performed in suboptimal fashion without IV contrast. There is streak artifact from the arms which could not be elevated above the abdomen. A dose lowering technique was utilized adhering to the principles of ALARA. FINDINGS: Lung bases: The heart is mildly enlarged noting trace pericardial effusion. Pacemaker leads are in place. The mitral annulus is densely calcified. There is a small hiatal hernia. The lung bases are clear. Liver: The unenhanced liver is normal in size, contour, and attenuation. There is no intrahepatic biliary ductal dilatation. Gallbladder: Surgically absent noting clips in the gallbladder fossa. Spleen: Normal in size and attenuation. Pancreas: The unenhanced pancreas is moderately atrophic and grossly unremarkable. Adrenal glands: Unremarkable. Kidneys: The unenhanced kidneys are normal in size and without hydronephrosis. There are at least 2 nonobstructing calculi identified in both kidneys which measure up to 3 mm. No ureteral stone is seen. There is no evidence of contour deforming renal mass lesion. Abdominal vasculature: The abdominal aorta is normal in course and caliber noting advanced atherosclerotic calcification. Bowel: There is no bowel obstruction. Moderate fecal retention is seen throughout the colon. A duodenal diverticulum is incidentally noted. The appendix is not visualized. Peritoneum: There is no intraperitoneal free air or abdominal ascites. An electronic device is seen in the left lower quadrant abdominal wall. Leads extend into the anterior upper abdomen along the anterior aspect of the distal stomach. Lymphadenopathy: None. Pelvic viscera: The bladder is normal as visualized. The uterus is surgically absent. No adnexal lesion is seen. Skeletal structures: The skeletal structures are osteopenic. Postsurgical and spondylotic change is noted in the lumbar spine. There are mild chronic superior endplate compression deformities of T11 and T12. There is also chronic-appearing deformity of the sacrum. No lytic or blastic lesions are seen. There are chronic/healed left-sided rib fractures. IMPRESSION: 1. No acute infectious or inflammatory findings are identified in the abdomen or pelvis on this unenhanced examination. 2. Cardiomegaly and cardiac pacemaker. 3. Bilateral nephrolithiasis. 4. Additional findings as above. ACT 112: Negative or not required by law. Electronically signed by: Kavon Marroquin M.D. 06/24/2025 3:[address] 06/24/25 14:05 CT SCAN OF THE CERVICAL SPINE CLINICAL HISTORY: Trauma. Vomiting. Pain.. COMPARISON STUDY: None TECHNIQUE: CT scan of the cervical spine is performed from the skull base to the upper thoracic spine. Images are reviewed in the axial, sagittal, and coronal planes. IV contrast was not administered for this examination. A dose lowering technique was utilized adhering to the principles of ALARA. CT DOSE: FINDINGS: There is asymmetric pneumatization of the mastoids with chronic sclerotic changes involving the right mastoid. The prevertebral soft tissues are normal. No acute fractures or traumatic subluxations are visualized. There are degenerative changes most pronounced at the C6-7 level with disc space narrowing and posterior osteophyte formation. There is also a calcification within the posterior ligamentous complex at this level. This results in mild to moderate spinal stenosis. There is also a suspected disc bulge/extrusion at the C3-4 level. There is mild biapical pleural-parenchymal scarring. The visualized portions of intracranial contents are unremarkable. IMPRESSION: 1. No acute fractures or traumatic subluxations 2. Multilevel degenerative change with mild to moderate C6-7 spinal stenosis ACT 112: Negative or not required by law. Electronically signed by: Jase Macias M.D. 06/24/2025 3:06 PM Chest X-Ray 06/24/25 14:05 XR chest 1V portable CLINICAL HISTORY: Chest pain, nonspecific COMPARISON STUDY: 06/02/2025 FINDINGS: The cardiac and mediastinal contours are normal. There is a left subclavian dual-chamber central venous pacemaker present. There are calcifications in the region of the mitral valve annulus. There is no failure. There is no focal pulmonary consolidation. There are no pleural effusions.. Incidental note is made of surgical clips in the right upper quadrant, likely secondary to a prior cholecystectomy. IMPRESSION: No acute cardiopulmonary findings. ACT 112: Negative or not required by law. Electronically signed by: Jase Macias M.D. 06/24/2025 3:[address] 06/24/25 14:05 CT head/brain wo con CLINICAL HISTORY: 75 years-old Female with Fall, headache, vomiting. Acute headache with nausea and vomiting and recent fall. Possible concussion. TECHNIQUE: Multiple axial CT images of the head were obtained without contrast. A dose lowering technique was utilized adhering to the principles of ALARA. CT DOSE: 1911.66 mGy.cm COMPARISON: CT cervical spine of same day, brain MRI 07/03/2021, head CT June 21, 2015 FINDINGS: No acute intracranial hemorrhage, midline shift, intracranial mass, hydrocephalus, territorial ischemia or abnormal extra-axial collection. Involutional changes with ex vacuo ventriculomegaly redemonstrated along with chronic microvascular ischemic disease. The calvarium is intact. Prior bilateral lens repair. The paranasal sinuses, mastoid air cells, and middle ear cavities are clear. IMPRESSION: No acute intracranial abnormality or calvarial fracture. ACT 112: Negative or not required by law. The above report was generated using voice recognition software. It may contain grammatical, syntax or spelling errors. Electronically signed by: Chirag Sosa M.D. 06/24/2025 2:53 PM (2) Nausea & vomiting Vomiting type: unspecified Qualified Code(s): R11.2 - Nausea with vomiting, unspecified (3) Abdominal pain Abdominal location: generalized Qualified Code(s): R10.84 - Generalized abdominal pain
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
[2025-06-25] MEDS: KETOROLAC TROMETHAMINE 15 MG/ML VIAL IV PRN (11:09)
--- NOTE | 2025-06-25 13:25 | Pharmacy Report ---
Pharmacy Glycemic Short Note 2 - Date of Service June 25, 2025 - Glycemic Short BSG Results (Last 24 hours): 06/24/25 06/24/25 06/24/25 13:10 14:10 15:13 Glucose 382 H* POC Glucose 381 H* 384 H* 06/24/25 06/24/25 06/25/25 17:09 21:04 05:19 Glucose 130 H POC Glucose 320 H* 254 H 06/25/25 06/25/25 08:03 11:37 Glucose POC Glucose 97 124 H OUTPATIENT ANTIDIABETIC REGIMEN: * Lantus 16 units SC daily@16 * Novolog TID with meals * HbA1c ordered by provider for 06/25/25 ASSESSMENT: 06/25: * Jeannette received 17 units of insulin yesterday (10 units were basal and 7 units were bolus). BSGs were all above goal yesterday. * Fasting BSG was 97mg/dL this morning. Carb ratio was loosened and Lantus was changed to a scale at HS (0,5,or 8 units depending on BSG). 06/24: * 75 yo F with TYPE 1 diabetes admitted with vomiting. Per H&P, patient has not taken insulin x days priot ro arrival 2nd poor appetite. Patient has a PMH of gastroparesis w enteric device, but this has been for about a month. Surgery planned for next week * Hyperglycemia 2nd insulin insufficiency in T1DM. * Prior hospitalization with hyper- and severe hypoglycemia while on 12-15 units Lantus daily and CHO ratio of 12. Will loosen from these parameters PLAN FOR INPATIENT GLYCEMIC CONTROL: * Basal insulin * Lantus scale (0,5, or 8 units depending on BSG) * Bolus insulin * NovoLog per scale ACHS or Q6hrs while NPO * Goal Range: Low 140 mg/dL - High 180 mg/dL * Correction Factor: 45 mg/dL/unit * Nutritional / Prandial insulin per carb ratio of 1 unit per 20 grams CHO consumed
--- NOTE | 2025-06-25 17:40 | Electrocardiogram Report ---
Test Reason : Blood Pressure : */* mmHG Vent. Rate : 102 BPM Atrial Rate : 102 BPM P-R Int : 174 ms QRS Dur : 162 ms QT Int : 402 ms P-R-T Axes : 72 -86 88 degrees QTcB Int : 523 ms Atrial-sensed ventricular-paced rhythm Abnormal ECG When compared with ECG of 01-May-2022 14:32, Premature ventricular complexes are no longer Present Vent. rate has decreased by 44 bpm Confirmed by Deep Springer ([id number]) on 06/25/2025 5:40:08 PM Referred By: REFERRED SELF Confirmed By: Deep Springer
[2025-06-25] MEDS: LANTUS PER UNIT CHARGE SC SCH (20:34)
[2025-06-25] MEDS: FUROSEMIDE INJ 20 MG/2 ML VIAL IV ONE (21:56)
[2025-06-26] MEDS: INSULIN ASPART PER UNIT CHARGE SC SCH (01:53)
[2025-06-26 06:50] LABS: Alanine Aminotransferase 10.0 U/L (7-52); Albumin Globulin Ratio 1.4 (0.9-2); Alkaline Phosphatase 77.0 U/L (34-104); Anion Gap 11.0 (3-11); Bilirubin,Total 0.5 mg/dl (0.2-1.0); Blood Urea Nitrogen 7.0 mg/dl (6-23); Calcium 9.1 mg/dl (8.6-10.3); Carbon Dioxide 27.0 mmol/L (21-32); Chloride 104.0 mmol/L (98-107); Creatinine Clr Calc Pharmacy 61.5 ml/min; Globulin 2.7 gm/dl (2.5-4.0); Glucose 190.0 mg/dl (70-99(Fasting)); Magnesium 1.5 mg/dl (1.7-2.4); Potassium 3.1 mmol/L (3.5-5.1); Sodium 142.0 mmol/L (136-145); Total Protein 6.5 gm/dl (6.0-8.3)
--- NOTE | 2025-06-26 08:12 | Gastroenterology Progress Note ---
Date of Service June 26, 2025 Assessment & Plan (1) Gastroparesis: Plan: From what she tells me she is improved. She doesn't believe [facility] will move up her battery replacement. Hopefully she will improve enough to go home before next Saturday. Admission and Anticipated Discharge Date Admission Date: June 24, 2025 Subjective Feeling better. Having pain "but its manageable". No vomiting Physical Exam Physical Exam: She looks well Constitutional: WD/WN, vitals as above Results & Data Vital Signs (Past 12 Hours) Vital Signs Temp Pulse Pulse Resp BP BP Pulse Ox 06/26/25 07:56 36.7 C 85 17 154/72 H 97 06/26/25 07:47 36.5 C 90 18 142/72 H 97 06/26/25 02:28 163/67 H 06/26/25 01:58 188/72 H 06/25/25 22:38 36.7 C 93 H 18 182/73 H 98 06/25/25 21:47 96 H 06/25/25 20:30 O2 Del Method 06/26/25 07:56 Room Air 06/26/25 07:47 Room Air 06/26/25 02:28 06/26/25 01:58 06/25/25 22:38 Room Air 06/25/25 21:47 06/25/25 20:30 Room Air
[2025-06-26] MEDS: MAGNESIUM SULFATE / D5W 1 GM/100 ML BAG IV SCH (09:00)
[2025-06-26] MEDS: LANTUS PER UNIT CHARGE SC ONE (09:00)
[2025-06-26] MEDS: POTASSIUM CHLORIDE / WTR 10 MEQ/100 ML PLCT IV SCH (09:01)
[2025-06-26] MEDS: METOCLOPRAMIDE HCL INJ 5 MG/ML 2 ML VIAL IV PRN (09:48)
[2025-06-26 11:21] VITALS: RESP 18
--- NOTE | 2025-06-26 12:07 | Hospitalist Progress Note ---
Date of Service June 26, 2025 Assessment & Plan (1) Gastroparesis: (2) Nausea & vomiting: (3) Abdominal pain: Plan 75-year-old female with PMH of T1DM, diabetic retinopathy, daibetic peripheral neuropathy, HLD, diabetic autonomic neuropathy, HTN, IBS with constipation, gas troparesis [presence of gastric pacemaker], generalized osteoarthritis, restless leg syndrome, iron deficiency anemia, recurrent major depressive disorder presents to the ED with worsening nausea, vomiting, abdominal pain. #Abd pain/nausea -Secondary to gastroparesis -Similar to all her previous episodes -Labs and CT AP reassuring -Likely due to her gastric stimulator not working due to low battery Plan -Appreciate GI input -Symptom control -DC IVF -Advance diet as tolerated -Follow electrolytes, replace as needed -Explained to patient and brother that battery exchange is an OP procedure and are not able to transfer to [facility] for this -Will likely have to control symptoms, support nutrition until she can go to [facility] next saturday for her scheduled procedure #Hypokalemia -Replace and follow #Hypomagnesemia -Replace and follow #IDDM -SSI -Pharmacy consulted for assistance #HTN urgency -Due to not taking home BP med -Continue metoprolol -Add prn IV hydralazine -If not improved by tomorrow, consider starting norvasc #Depression -Continue home SNRI I spent a total of 36 minutes coordinating, documenting, and providing care for this patient excluding time spent in the performance of separately billed services. This included personally reviewing all current laboratories and imaging studies, medical reconciliation, outpatient chart review and discussion with specialists Admission and Anticipated Discharge Date Admission Date: June 24, 2025 Subjective Feleing better today. was able to eat some of her breakfast. abd pain still present but improved. Physical Exam Physical Exam: Vitals and labs reviewed General: Well appearing, NAD HEENT: EOMI, PERRLA Neck: Supple Cardiac: RRR no rubs gallops or murmurs Lungs: CTA no rhonchi wheezing or rales Abd: S NT ND BS positive MSK: Full ROM. No obvious deformities Ext: No Edema cyanosis Skin: Warm, Dry Neuro: AOx3 No focal deficits. Psych: Normal Mood Results & Data Results & Data Vital Signs (Past 12 Hours) Vital Signs Temp Pulse Pulse Resp BP BP Pulse Ox 06/26/25 11:19 36.7 C 89 18 175/75 H 96 06/26/25 08:00 98 H 06/26/25 07:56 36.7 C 85 17 154/72 H 97 06/26/25 07:47 36.5 C 90 18 142/72 H 97 06/26/25 02:28 163/67 H 06/26/25 01:58 188/72 H O2 Del Method 06/26/25 11:19 Room Air 06/26/25 08:00 06/26/25 07:56 Room Air 06/26/25 07:47 Room Air 06/26/25 02:28 06/26/25 01:58 Laboratory Results Abnormal lab results 06/25/25 06/26/25 06/26/25 Range/Units 16:40 01:06 05:45 Potassium 3.1 L (3.5-5.1) mmol/L Glucose 190 H (70-99(Fasting)) mg/dl POC Glucose 171 H 136 H (70-99) mg/dl Magnesium 1.5 L (1.7-2.4) mg/dl 06/26/25 06/26/25 Range/Units 07:58 11:52 Potassium (3.5-5.1) mmol/L Glucose (70-99(Fasting)) mg/dl POC Glucose 205 H 209 H (70-99) mg/dl Magnesium (1.7-2.4) mg/dl (2) Nausea & vomiting Vomiting type: unspecified Qualified Code(s): R11.2 - Nausea with vomiting, unspecified (3) Abdominal pain Abdominal location: generalized Qualified Code(s): R10.84 - Generalized abdominal pain
[2025-06-26] MEDS: LANTUS PER UNIT CHARGE SC SCH (17:46)
[2025-06-27] MEDS: INSULIN ASPART PER UNIT CHARGE SC SCH (02:42)
[2025-06-27 06:29] LABS: Alanine Aminotransferase 9.0 U/L (7-52); Albumin Globulin Ratio 1.5 (0.9-2); Alkaline Phosphatase 77.0 U/L (34-104); Anion Gap 8.0 (3-11); Bilirubin,Total 0.6 mg/dl (0.2-1.0); Blood Urea Nitrogen 10.0 mg/dl (6-23); Calcium 8.9 mg/dl (8.6-10.3); Carbon Dioxide 27.0 mmol/L (21-32); Chloride 105.0 mmol/L (98-107); Creatinine Clr Calc Pharmacy 73.0 ml/min; Globulin 2.4 gm/dl (2.5-4.0); Glucose 231.0 mg/dl (70-99(Fasting)); Magnesium 1.9 mg/dl (1.7-2.4); Potassium 3.7 mmol/L (3.5-5.1); Sodium 140.0 mmol/L (136-145); Total Protein 6.0 gm/dl (6.0-8.3)
[2025-06-27] MEDS: LANTUS PER UNIT CHARGE SC ONE (08:57)
[2025-06-27 11:12] VITALS: BP 163/72; PULSE 83; TEMP 97.5; O2SAT 96
--- NOTE | 2025-06-27 12:18 | Discharge Summary ---
Discharge Summary Date of Service June 27, 2025 Principal Dx & Hospital Course #1 = Principal Diagnosis (1) Gastroparesis: (2) Nausea & vomiting: (3) Abdominal pain: Plan 75-year-old female with PMH of T1DM, diabetic retinopathy, daibetic peripheral neuropathy, HLD, diabetic autonomic neuropathy, HTN, IBS with constipation, gastroparesis [presence of gastric pacemaker], generalized osteoarthritis, restless leg syndrome, iron deficiency anemia, recurrent major depressive disorder presents to the ED with worsening nausea, vomiting, abdominal pain. etiology secondary to her longstanding gastroparesis. Her gastric stimulator battery has run out and is due to exchange at [facility] this coming saturday. her diet was slowly advanced and she is tolerating PO. she feels better today and wishes to go home. vitals and labs are stable for DC. she was advised to eat small frequent meals low in fiber. nutrition was consulted as well. her BP was consistently elevated and she was started on norvasc. she is to f/u with her gastroparesis team on saturday and with her PCP in 1-2 weeks. #Abd pain/nausea -Secondary to gastroparesis -Similar to all her previous episodes -Labs and CT AP reassuring -Likely due to her gastric stimulator not working due to low battery Plan -Appreciate GI input -Symptom control -DC IVF -Advance diet as tolerated -Follow electrolytes, replace as needed -Explained to patient and brother that battery exchange is an OP procedure and are not able to transfer to [facility] for this -Will likely have to control symptoms, support nutrition until she can go to [facility] next saturday for her scheduled procedure #Hypokalemia -Replace and follow #Hypomagnesemia -Replace and follow #IDDM -SSI -Pharmacy consulted for assistance #HTN urgency -Due to not taking home BP med -Continue metoprolol -Add prn IV hydralazine -If not improved by tomorrow, consider starting norvasc #Depression -Continue home SNRI I spent a total of 37 minutes coordinating, documenting, and providing care for this patient excluding time spent in the performance of separately billed services. This included personally reviewing all current laboratories and imaging studies, medical reconciliation, outpatient chart review and discussion with specialists Notes For Next Care Provider Medication Changes From Visit norvasc added Admission HPI Per Admitting Provider 75-year-old female with PMH of T1DM, diabetic retinopathy, daibetic peripheral neuropathy, HLD, diabetic autonomic neuropathy, HTN, IBS with constipation, gastroparesis [presence of gastric pacemaker], generalized osteoarthritis, restless leg syndrome, iron deficiency anemia, recurrent major depressive disorder presents to the ED with worsening nausea, vomiting, abdominal pain. Patient reports that her gastric pacemaker battery has been for about 3 weeks and has an appointment to exchange the battery at [facility] next Saturday. Patient reports that she has been feeling sick for about a week time and not able to eat, worsening abdominal pain since last few days, vomiting since last 2 days. Patient also states that since she has not been eating, she has not been taking the insulin for about the similar time. Patient also reports that she fell on Saturday, apparently was trying to get out of the bed and fell on hard floor, hit back of her head. Patient does not know if she passed out or for how long if she passed out. But apparently she called her brother over the phone for help which she states that she is not aware of calling and her brother told her she called after fall. ED provider was in touch with [facility] and states that there was no arrhythmia concern about the time she fell/syncope, but there had been about 40 arrhythmic episodes of A-fib and a flutter with heart rate generally in 70s in the last month. Patient denies fever/sore throat/cough/chest pain. Patient reports her usual bowel habit. Patient denies any pain or burning with passing urine. Patient denies smoking/alcohol use/recreational drug use. Medications reviewed with the patient at bedside. DNR/DNI Plan of care discussed with patient in detail, she voiced understanding. Discharge Exam Vitals and labs reviewed General: Well appearing, NAD HEENT: EOMI, PERRLA Neck: Supple Cardiac: RRR no rubs gallops or murmurs Lungs: CTA no rhonchi wheezing or rales Abd: S NT ND BS positive MSK: Full ROM. No obvious deformities Ext: No Edema cyanosis Skin: Warm, Dry Neuro: AOx3 No focal deficits. Psych: Normal Mood Updated Medication List Medication Instructions Recorded Confirmed Type omeprazole 20 mg capsule,delayed 20 mg PO DAILYBB 04/06/20 06/02/25 History release venlafaxine 150 mg 150 mg PO QAM 10/17/20 06/02/25 History capsule,extended release 24 hr (Effexor XR) blood-glucose sensor (Dexcom G6 #3 ea 11/24/20 03/02/24 History Sensor device) blood-glucose transmitter (Dexcom #1 ea 11/24/20 03/02/24 History G6 Transmitter device) insulin syr/ndl U100 half bette 0.3 #100 ea 03/21/21 03/02/24 Rx mL 31 gauge x 5/16" (BD Insulin Syringe Ultra-Fine (half unit)) evolocumab 140 mg/mL subcutaneous 140 mg subcut Q14D 02/02/25 06/02/25 History syringe insulin aspart U-100 100 unit/mL 1 sliding scale dose subcut 05/29/25 06/02/25 History (3 mL) subcutaneous pen (Novolog TIDWMEAL FlexPen U-100 Insulin aspart) insulin glargine 100 unit/mL (3 15 unit subcut DAILY@1600 05/29/25 06/02/25 History mL) subcutaneous pen (Lantus Solostar U-100 Insulin) lorazepam 0.5 mg tablet (Ativan) 0.5 mg PO DAILY PRN RESTLESSNESS 05/29/25 06/02/25 History metoprolol succinate 25 mg 25 mg PO BID #60 tabs 05/31/25 06/02/25 Rx tablet,extended release 24 hr mirtazapine 15 mg tablet 15 mg PO HS #30 tabs 05/31/25 06/02/25 Rx ondansetron HCl 4 mg tablet 4 mg PO Q6H PRN nausea and 05/31/25 06/02/25 Rx vomiting #14 tabs pregabalin 100 mg capsule (Lyrica) 100 mg PO BID #60 caps 05/31/25 06/02/25 Rx amlodipine 5 mg tablet 5 mg PO QAM #30 tabs 06/27/25 Rx Hospital Stay Data Consultations 06/24/25 18:38 ED Decision to Admit Stat 06/24/25 19:01 Consult Gastroenterology Routine Diagnostic Imagining Performed 06/24/25 14:05 CT abd pelvis wo con Stat CT cervical spine wo con Stat CT head/brain wo con Stat Pending Results Patient Have Any Pending Studies at Discharge: No Discharge Instructions Given to Patient (Per Discharging Provider) Please do not miss your battery exchange appointment this week. return to ED if you are unable to tolerate anything by mouth for over 12 hours Total Time Total Time Spent Total Time Spent (In Minutes): 37
[2025-06-27] MEDS ORDERED: LANTUS PER UNIT CHARGE SC SCH (16:00)
== END 2025-06-27 15:11 | disposition home or self-care (01) | DRG 74 ==
LOC: ED 13:05 → 4W 19:18 → SUATTDRO 19:18 → 4W 20:00